=== PATIENT | female | born 1985 | race Caucasian/White ===

== ENCOUNTER 2023-05-30 14:40 | Outpatient (OUT) | payer OTHER, SELFPAY ==
[2023-05-30 16:23] LABS: TSH W/ REFLEX FT4 1.156 uIU/mL (0.358-3.740)
[2023-06-01 07:07] LABS: Progesterone 0.2 ng/mL (.)
[2023-06-01 10:08] LABS: FSH 4.9 mIU/mL (.); Luteinizing Hormone(LH) 6.3 mIU/mL (.)
[2023-06-06 13:11] LABS: Estrogens, Total 265 pg/mL (.)
[2023-06-08 09:07] LABS: Free Testosterone(Direct) 0.2 pg/mL (0.0-4.2); Testosterone 5 ng/dL (8-60)
== END 2023-05-30 14:41 | disposition home or self-care (01) ==
LOC: LAB 14:44
PROVIDERS: PCP Nurse Practitioner Family; Visit Provider Nurse Practitioner Family
DX: N94.6 Dysmenorrhea, unspecified (principal); Z86.39 Personal history of other endocrine, nutritional and metabolic disease; N92.6 Irregular menstruation, unspecified
CPT/HCPCS: 36415; 82672; 83001; 83002; 84144; 84402; 84403; 84443

== ENCOUNTER 2024-01-06 19:05 | Outpatient (REF) | payer OTHER, SELFPAY ==
--- OUTSIDE RECORDS SUMMARY | 2024-01-06 19:09 | XMS_ITS | CCD ---
Author Organization [facility] Care Team Providers Care Competitive Athlete Name Role Phone ZHOU REESE Attending Unavailable Thomas Mckeon III Primary Care Physician ZHOU REESE Attending Unavailable ZHOU REESE Admitting Unavailable Juan Yuan Admitting Unavailable Juan Yuan Attending Unavailable Juan Yuan Attending Unavailable Juan Yuan Admitting Unavailable ZHOU REESE Attending Unavailable ZHOU REESE Admitting Unavailable Thomas Mckeon Attending Unavailable Thomas Mckeon Admitting Unavailable Keyonna Keane Unavailable Medications Current Medications Medication Drug Class(es) Dates Sig (Normalized) Sig (Original) azelastine hydrochloride 0.137 mg/actuat metered dose nasal spray (1 source) Histamine-1 Receptor Antagonist Start: 05-26-2023 take 1 puff(s) nasal route twice daily Azelastine HCl 137 MCG/SPRAY 1 puff in each nostril Nasally Twice a day for 30 days May, Active ibuprofen 800 mg oral tablet (2 sources) Nonsteroidal Anti-inflammatory Drug Start: 10-06-2020 Ibuprofen Active 800 MG PO every 6 to 8 hours October 06, 2020 12:00am Start: 12-10-2019 End: 10-06-2020 Ibuprofen Discontinued 600 M G PO every 6 to 8 hours December 10, 2019 12:00am October 06, 2020 7:50am traMADol hydrochloride 50 mg oral tablet (2 sources) Opioid Agonist Start: 12-10-2019 End: 10-06-2020 Tramadol Active 50 MG PO every 6 to 8 hours 10 October 06, 2020 12:00am Completed/Discontinued Medications Medication Drug Class(es) Dates Sig (Normalized) Sig (Original) doxycycline hyclate 100 mg oral capsule (1 source) Tetracycline-cla ss Drug Start: 12-10-2019 End: 10-06-2020 take 1 capsule by mouth twice daily Doxycycline Hyclate (Vibramycin) 100 mg capsule Discontinued 100 MG PO Twice daily 14 December 10, 2019 12:00am October 06, 2020 7:50am Problems Problem Classification Problem Date Documented Da te Episodic/Chronic Menstrual disorders (4 sources) Menstrual cramp; Translations: [Dysmenorrhea, unspecified] Chronic Other nutritional; endocrine; and metabolic disorders (1 source) H/O: hypothyroidism; Translations: [Personal history of other endocrine, nutritional and metabolic disease] Episodic Other nutritional; endocrine; and metabolic disorders (1 source) Personal history of other endocrine, nutritional and metabolic disease Episodic Other upper respiratory disease (1 source) Nasal congestion Episodic Otitis media and related conditions (1 source) Unspecified Eustachian tube disorder, bilateral Episodic Results Test Name Value Interpretation Reference Range Facility PAP [id number] 10-30-2022 Cytology report Cyto stain Doc (Cvx/Vag) Note Invalid Interpretation Code [facility] Comment on above: Result Comment: TEST S RESULT FLAG UNITS REF RANGE LAB Clinician Provided Cytology Information Source.............[employer] No. of containers..01 ThinPrep Vial DIAGNOSIS: 01 NEGATIVE FOR INTRAEPITHELIAL LESION OR MALIGNANCY. FUNGAL ORGANISMS MORPHOLOGICALLY CONSISTENT WITH MARIANGEL SPECIES ARE PRESENT. Specimen adequacy: 01 Satisfactory for evaluation. No endocervical component is identified. Performed by: Javier Diaz Community Case Manager ([facility]) . 01 Note: Note 02 The Pap smear is a screening test designed to aid in the detection of premalignant and malignant conditions of the uterine cervix. It is not a diagnostic procedure and should not be used as the sole means of detecting cervical cancer. Both false-positive and false-negative reports do occur. Test Methodology: Note 02 This liquid based ThinPrep(R) pap test was screened with the use of an image guided system. FLAG LEGEND: L-Low Normal,H-High Normal,LL-Alert Low,HH-Alert High <-Panic Low,>-Panic High,A-Abnormal,AA-Critical Abnormal Performed at: 01 [facility] Cyto Histo [address] [place] [address] Jeromy Mcdowell MD, [address] [address] Rosaura Melo MD, Performed By: #### 3 [id number] ####[address] [place] [address] HPV 16+18+31+33+35+39+45 +51+52+56+58+59+66+6 8 DNA Probe+sig amp Ql (Cvx) Negative Invalid Interpretation Code Negative [facility] Comment on above: Result Comment: This nucleic acid amplification test detects fourteen high-risk HPV types (16,18,31,33,35,39,45,51,52,56,58,59,66,68) without differentiation. Performed at: [facility] [address] [place], [place] [id number] MD July Pinzon Performed at: =G [address] [id number] MD Kameron Kaplan Performed By: #### 3 [id number] ####[address] [place] [address] PAP [id number] 10-24-2022 Collection Technique BRUSH-SPATULA Normal F [facility] Comment on above: Performed By: #### 3 [id number] ####[address] [place] [address] Gynecological Body Site ENDOCERVIX Normal [facility] Comment on above: Performed By: #### 3 [id number] ####[facility] [place] [address] Physician Orderon 10-24-2022 Physician Order [id number] :127 Normal [facility] Coding Summary.on 05-31-2022 Coding Summary. CD:[id number] Gh0b Ww+PGhlYWQ+AJ9RHKVqA29nb JUudG8MD3iUAY4WPTQVHNWIF R7UGN9vaTC7QIqsU8TvrkDm RojkaLCbUH51WOs1MMA6dLly ENguyB2elMPiU6l0SsNfWI16 dK27ZEwaPAGvNyD0TiMvexkt bWFy M0zhHcAgjDGmFxs+PHRhYmxl IHdpZHRoPScxMDAlJyBzdHls EK4xMl3tZLIjUZMftXolaHXl OiBj o7gkVXHnKOhdYD7jbBqaI2Ww cLV5KLVxx5h0Hn83tPX+PHRk WQJ2eDbbWWuld030YpDpu5aa IDM3 rJIlIHcrBIC3U47yr0D6WFZz URPtHOU0zZW3mO5hqFworkzp S2UcwGQuWfN3JOZ8gKRavX1g bGln xlmoeM9vKzi+X27DQD3WISHB JQ5XMvg6D7CeNxdugPZ+PC90 DNWmBN06vTGayWYfa2vefWc7 JzEw EXGhZVI8fLraDCdea0BxVCQn R28vfXPdz5O4URSdxImfzILl SrWgfFK6nY5fTJgpyagav7gb dzsn Mqkdn9fnvx68dZ66M12cRCil NLSnVWD1LHHrDCIvvOeabu5o yK0wYu8+RUswb6hvb4csvAb2 IjIw WPNfzrJmmXmdNPB1e2OhHu45 B3EioSnmu2VuTpd4tf33nZYn q7B8qUY4GUinDGUzyO1lKSkr ZnQ6 OUBaAvQurZ84tWEcAYpzPy9v dVnmwYylSJ8eMLCtxjqmYAVp lT6xFBUdxPFszRhkLU7oUODk bjtm i849HlWwTIH3MBJplTYnQ4Js vT0zLkPsSBKvGZKhS0GmhQXl XQaxT121RRofQxC9HVZfjdTx Y2Fs SUJvfJtlUpO5w1K1Td2Xk1Ff xbzaYIC5ZOejGWOwZyB6GnFq QuP0Q5TkSru3BFQhuSepFK8x J3Bh NJNrwzzkqeheqKW3ZWHfLNFx rG68pNBqBVorMn8lj3Q2j146 BPEkTZXkcN78Ic0naXpnFNDi dCBU cQ0pykdxj6wetgbwIuQqZNDw JMj4RZo6IGDdiRdqPdXqNKU3 OgC6QXJ9fZTgmN4ytCjkriee dG9w Oyc+K84tsE3hCNO8CWI4fyhi FFTbdpSqAC28FO68B9QlIsmm dGFibGU+WGKoeiCurYzdBJ0a YmFj j7suu2NfULjzK1FaCDWxTXeq Uug3SSKwKPK0pWH0rD0eENKv QSylj1T7cRX6N3DhmiWeuj2a b2xs IUEmGVjgT54xaZApz2P3SUJr hCZ4IIWnwWuyGcFesK15Iyt+ DDDjpPajr8MnTtgmz6wfv9zo dGg9 DoBdDXHgeoNzsUdnQEU4t0Uu Qn48O97sWZpkYEHyVXWlYIWv NVMjrPklhi4ptA6uKz2+PGNv bCB3 lKH4lR9lUFEkDeN8EFuaM276 ZnBclCYlMbraz0img6vcxXl6 ScBlRXTtfbMlyNkuBRN7c5Tg Lz48 W80yHCvaYRHiUEAcJNNtGENk xZizmi8lmO0eIx4+RC5xm6xg xs97eY03uGB+NURlWUO9lYsc PSdw FOOepC4iDFpaIxS6OGCuYqCa uU21vKHyDIkhIl3rxBzjoBza VJ8zHLGtsfxvq147TgDeo0rp IDEw eMYkFRgcHGW4B44kr3I7ZEEm UZAhHCP5hBA3lT7upYvhoric bGVmdDsgdmVydGljYWwtYWxp Z246 IHRvcDsnPlBhdGllbnQgTmFt GWc7W3VzYqr7PMBgdAmbFZ3a rJJwNLfpXg8fkPeolGztYT7v NTBp hsagr220HmMcb9glSCYaoQMt UKtjOFO2P72bn8S1FTWrHWFx ANQ5fJA0aB1twUpyqavfuXUl dDsg ziCrlZmwGZezYDhgJ475BTAm hExbFcImbiShQIGbpXK5RX62 UF54hPTwo6Q4xGN2M1YmMZAo bmct khfqkBI1NDCnLSPufB26Cr3g hQcvNn5qBZJaQIP1XQGeiSRt X1OdwZ8kSbUrUTQvEMRaG3Pc eHQt STnhB211CXhkLhJ7NHXuseKr M3SzJHHuyBhwZyE0z8A3Oc9P D2V4AL28FC95wNJon5O1nIY7 J3Bh SZMjqjxiorwcuRS8DAVoYOTz aQ02Zk5tnGroJl9lZJBrQHE2 FYOkvONoP3YuzV1mUhWjCEFs MDAw E4QbrUJbWVtgN989HZfqNxU3 GIJirwEkT3CoDSIklHuhOfH7 h5O7Hz2USXd4BF39TY10qRCf c3R5 kIU2H6IwLKTluofepdospNS4 ZHSvOJUaiV66Vs8iyLsnMd0k FWYoIND6WMDxcMRxM2ZsyR3v OiAj QKWiEXZkB6YhjBDjCYinK755 ZZamFzT9ATBoysOdS4StRSMx fYfsIeZ0w9O2Iw5HERFwPP16 IFR5 nUH2KH22GX69O3CpGigmbRWs bGU+PHRhYmxlIHdpZHRoPScx KSJmXxXicLxcDM8mOr2iDUNi LWNv sNbkeQAiVfFia1jiKDKeHKij KP9egVcqG0OgwYK6XVJip7l6 Ft86G88zH0LsxBO+PGNvbCB3 aWR0 oT3sDxCcIuP8RGswH510TpMe oICeByfkb4lii6cgbLg8RjQ2 TIDibmKgsCsbESC5q7IdLr93 Y29s IHdpZHRoPSIxNSUiIHZhbGln ba7hnO2gPp6+WSHviMF8bAT5 cW8bOnIvPgW0UVkiT727UgXf cCIv Uqczi8ptu4smzBx0LfZeATDi xqLzvVsrIOX3s3KkVm69A2Rb lKgxe9HxGft7bu61jJZyx7H1 bGU9 Y6CsSTVdmzupuHHjtVqkIW7j AOFnjawkDDKhsL2xPWFxS0s2 BsOqJcK1OEuoR4SqivT7VFEk cHQg GVsrESE6L76li0M1ESOlQHFi WFX4jVS8lT6nlXegdtbvjNDm pCejbtKevVlwFYeiVVrpG807 IHRv cCuxATTiiJ7rGKJthGUpxSkt ZA2vVDJfwjemPx6OPKVCG4Gb CV1PS5mZOJkKNBs0V3CtOtb6 ZCBz uKvyOA0ioATtISerUw9ssPnj vSxiQV5pFGFcpfygKQFquD5n ECLfcONehYcuBD4tZTSadbvt b250 XqEsHHA1IEDqrXJnE4GspZ2k DbVrNMPwKDTxL9XkaEJcTHof Q286MBdwXtY3BOUfqjXhC0Ib LWFs kWazPdD3e9J2Wf4oIZ0vGZ3n QZf2XT55BG94oRCnt4C4dLC8 B9YrMXCtnquovawctLX1GGSb MDUw oK64nMQcPFfqGx4jg2J6x751 QXCeUECjvZ91Py4ypCxbGFXj hYTDwT9lryhbt0icumyeRqMx MDAw HCt9LUm2RILelGumEmIjMOD1 GlU4BPZ1gQYzvT5qvOispgpe mK3zXsi+UsrjOGSkxgR2K5Rc Pjx0 ZHYweXgeKI3dsARlVLigLh6n wQuggLdpAR7tRIHbhoafBQHt vY1fULMnwDPmdQdpWJ7hLSWx bjtm v017LbQtZUG2NZGpyREaV7Sk wN2eVpFsADAqEZVbB8JpsOXy LVaiL893KMcuWiO4ZOTpqaUf Y2Fs YXIjsBcmWqO9m9I0Nt9MDC4s lSZ3T3GvTll0ASEpgBqyES4w tKFqTDczUq4spToyjMiqMT2g NTBp algdCXUknU9jNRMygSNnlKxy ZZ2nLMVwxdziz118TtFiGLP9 IHMrbGVnL9YsnZ9hXcHuITXi MDAw M8YbeSXsWUyiA844MFgrOsV6 FKJgiyUiX6MtUOIyiLwjYwQ9 p4X5Po9OlRGpUHUmDB64QE51 ZD48 A2WrPhrtoFZnoGI+PHRhYmxl IHdpZHRoPScxMDAlJyBzdHls IO2iCc3wSBFnWWKazTjupFEd OiBj b7stPLFkKTggCE6bvOajL3Sp tBB7IOYfm8n0He13X57kA6Ir dXA+HVWrpMJ9fQQ0qD8iAyDe IiB2 XVdoK750HbAksGAuGtbst6yy z2rfyVo1TnHjBXEqvjLnrYdp DMK7f4SsHx52D45zGFdqZADp PSIy CLUcKLUyoEqwli6xdZ3aOt9+ LNGflRV0hDG4eJ7qCqCxQjM4 QMtkE454YyZcaOQdFksxQ39n Z3Jv dXA+QQEjOof4TCKmiFxfHP3i lUTuBAbsRr6dZIW4VuJbVwRq QJttW6XrAYPvxtbdvpjvhLY1 IDAu FXUvhF00Vv7olByyCl1pSGCz ZPO5LTGgoGMlZ4YfcW5jBbNj TRExTZOcQ5NghCFvWSvuJ781 IGxl AtY5VWRjbnNzI7UlVPRloZyz YsI0k7Y2Sz0AoDpzbEAqGJ1e PmMrDSm0V7IgOlw2QMUwrIrz ZT0n bNJoAYftOu8zgIbozSeiQF1g NHXpoiacg900VlYid6dyFPVu wMZdMKcgJQE9Q41nv1J9MAPe MDAw ELY3qTK3sH4ekZqimsgmxGQm kEopnrHwkCjrIUudEQoqA519 WKCpgTlxWpKASci0Y2IvYnx6 ZCBz vSfaQP3huCHaANqsSb1gcYzc mOgtFQ6kMKDokpbpu658ZgPf f3ffCXIvkQJaHHlcLWN9H81m b3I6 AICqNTLwQDF2iAF4zR1ddPzy bjogbGVmdDsgdmVydGljYWwt DCzsN021KXXooYklWp3XToj3 L3Rk Qeh6LZMydRihHK5nuDLsCVti Vv0kiDidyWnmRF4yXFSxdfos p318AqJmi9njABCbvIVyHRmj ZXM7 L16jb3R0JEXpFZJlDNZ6ySA0 gP5rlOrcdyfulKYwmIbknlGp gCohXNxmSAxlF041KKKuoQwb PlBh eWVyOjwvdGQ+IY13gt81B1Ai PlvdSoz5ITKvGRK3aRT7yH5y PBWaZNynq2N1rBB7D5AqjbHf ci1j b2xs (more content not included)... [facility] Physician Orderon 05-31-2022 Physician Order [id number]#1.00CD: 127 [facility] Physician Orderon 05-28-2022 Physician Order [id number]#1.00CD: 127 [facility] Consent for Treatmenton 05-15 Consent for Treatment [id number]#1.00CD: 127 [facility] Physician Orderon 05-27-2022 Physician Order [id number]#1.00CD :127 [facility] Coding Summary.on 04-24-2022 Coding Summary. CD:[id number] Gh0b Ww+PGhlYWQ+KJ6SPZMvW95xy FYkzS2CX8jVOD2YNCOTHOSHP U0OAQ9tlLV1ODyyJ4UmiaRo TmakzFDlBR06SZd7KIO4hMeq FPkblM6fuGMeE5j7IoAaCD28 mI25MZuwCQOmZpG9IzRytsma bWFy Q9duIaGcyLQtNus+PHRhYmxl IHdpZHRoPScxMDAlJyBzdHls KF7aLs3gGYOrCXDtsZlqlMCm OiBj x5nsEWNjBNwkOV9drQflH5Kp iBX2EGYoa1h3Jr07nHT+PHRk EBA9hNaiUKqzp019UyBbc9kq IDM3 uYYlNWovEST6O71kv8O1CWRp KOUbRIO9sRW7mV0vaJiznoza J6PyzKWgEoA8XMG5aZWlpR4c bGln xaiwjK5vFsv+V32MLM3XHZJW LF9NZen4X3VhZeoinMQ+PC90 SEDbBP29xZYmlRZwo0ieqDu2 JzEw CXCpWDF5lMroSDrir9ZzJEFd Z60zcIYhr4X6NZRreZaabPQq DxWckYA6xD8hUWnkxykfi9jc dzsn Kfnaj9ltoz44sE25B80fXZrl QPOwXZW2AJCoNTXmeTdrif0b bX1rKo1+TKcyq4uez4loaLl9 IjIw OIEnhpEqdEdiYFF7d0XrOp51 B0SimVetk1VtWyd3wg42cQNk g8K3lEN1KYzsKDDgaU4kEAry ZnQ6 UZHmTuCiuV00tLDxINrrUe0a xQhjjEtsOK5oELKhvlxkJCIt aK8rARTjtEYaaQbvCM5bZGSj bjtm y632YdGtYIC3ZFXyuSCzC7Oc dZ1fXiUbODCaHSWiM0RivOUn VYjzD664GConZvR5HATppyEi Y2Fs FEYtlYjnTeU3y7Z1Ev1Pc7Wo kxexLIT8ZWjlRKTaUtFwKaXo IwK2X6OaElu9YZLltZxhZD9s J3Bh OHWzxbmaboqntWJ0SXJgLWTp uH90qKLaBVvsMx1be4Y9o514 DUGbEQCygW82Pm4wkLsmRCQz dCBU zF8tynlzk3ahmvlbSpGoOZPv ESm3DNv8TUIgfCstQkGuELA6 NyX6HHD4nATgmV3plBposjab dG9w Oyc+F88ztK0pWBE7KJG8irun NPDcrgDiLL66TT55T8UvPsjb dGFibGU+NYEwlpYolFgkXN0i YmFj f5ibx7KiMCoxP7NqYBSxMJrt Rif7RKCbOZP3zMV7cC2uGIZl OFyms4N8iGH8W6YalvPkti7v b2xs PEJzHPobW92vbHKpl2I7TUZd mRE6DOOtvQacCmKxyE70Agk+ FVMthDxxs8SyJyspx8khk5ty dGg9 AxFuBWFguwFcuWucRVO8m5Xs Ac25Y72uMKftFXOfTLDsMMWx RWNooJxozp7laN9bVw0+PGNv bCB3 cTC7vK0oYRWmCmS1MNmkF669 BfMmjZWnNdqal9jyb0uwsSe0 VpSoGNTssuWglCygHER7q0Us Lz48 V81pWTvbRZTbDWOpHYKqMQPj uHxagf3yeO2sSn7+JU1eg5aj sv62sY99iRI+CONyNCP0nWmp PSdw POTlsL0mGOxuOgE7GRHsFxUh kC59mJEoNYwxUm2kmJcuxRvz VK0fQIGufgmwv041XjOpc8js IDEw zYKlXVzwQRE9E38vl5G7NQTb NQRyFBG4cZQ2rE8pvTrtkwpc bGVmdDsgdmVydGljYWwtYWxp Z246 IHRvcDsnPlBhdGllbnQgTmFt QKa6P5GqHom5PYHeoGjyWS1p eOLaFMbzGu7svTwclHblCA1v NTBp ecrwc233DkVan7woTGKkmPDi LJomCBH9V09yc8N4OLBdQGWo DUR2eFB1lL1nwGycjgjkcHIr dDsg zbVigZcfCWpmJFdiQ364SLRw vOotUnZlnsVwBXMtjZD1ST84 VG46dGQia7N2mWY0I9KoVPSf bmct idyrrER0HBIiGRFqpK81Pv6h fUrkDq3aEALfCCL8DLUdfJQy E4GoxM2pXrLzFNCiAVNhG9Mu eHQt SBveR334PZgzQvC8AYDyimRd R5WrEJXsrCnuZmA3a1P2Tr3C C7D1FA18BK04vJMky5I7rFW2 J3Bh ESVdtrkphpfnnDK4DMZbQACs lK86Nf6vcHebXm1ySVYzTDS6 AJOvuZJyK6UxgN2xPqWeBNHb MDAw F7LkmLIdFOobF546MYapStM3 PSShllWbE2NmGLDqtHpoKzL8 r6Z6Ha2FPWr0QZ89DZ08xHTp c3R5 eFZ1N2LzFSKvpokgqefliZF8 RQZgDNMfkI49Lk0qeRwqZm2m RSAuURT3RRZzoKGcO1XgfO1f OiAj PWUyBQZcW3GzjUMlAFmsN744 DRlfNaK0UQYhqiHqT9LjGBTy yIdyWiJ3q4I8Iv1OEPTuDN87 IFR5 nTG2ER45EZ93H2KwWnalfQPv bGU+PHRhYmxlIHdpZHRoPScx KKErHuXrsOzyOT6iHx7tGHXl LWNv vBwywKHqQtFmw0giMRUqAZzc QC5uyBldZ6JlhTD0YJGng1f4 Co54I27kY9JcpKN+PGNvbCB3 aWR0 rH6oYtXrZoS5IDqsV121HaTl fSFeIbjbl6sdj1qthJw6CuB8 FTDvhwWtjXpgIBG2k8BtJj69 Y29s IHdpZHRoPSIxNSUiIHZhbGln hm1bhX1vVi0+FVJbjHC9yDD9 uF7cDfIeDkL6SQzzT076XoBn cCIv Xlamz5jgb4nfyLu1KzIjVBIm fjBwnUnwVWV7o0IoGg31T7Na lPnrg2LwMed8rs74oUEac2I1 bGU9 P2HjDKZqeoateBWikQjmDU4g IYVfkhzqREOcbX2hRVVrL0o3 AlKcDvN6UDjkH4CxljF3ESPt cHQg LGygUMB0Z23bp1Y4TQTyQJIj GTB9oNI1mM4krNmmdavqjIFk mHwidwAcuEqvIXugCPtyD489 IHRv hYaeMPPqrZ0gCITgiEMpoUot MV2hUYVelirmLv9YJTBAK1Eq AM9WA4vCUXlQNQs9R1MzHes4 ZCBz bRavVM0zvGGdYBpgTh7izYtd qCclVZ4bIFOdgwxnAJFytY8t LAHhqIXutUiaJK6kKHJcxhby b250 FaChEEC3TWKioDCeI1JvpO5w EtDiPEEuGGAcK4JdiSTtKFvd A322SPxoXrA7KVTwzbWtX9Uc LWFs zSmwMuC4x4F9Ub7bVV9aTU6h MSi8CV57DN31gDAhf9G1lUR5 X5ZbQTNuvglzvwcatWM5NDVa MDUw uS39qKXqCBfxWo2cd9E7a010 VEJlSPArhH81Rr8kuMqyFUVr dJQZmJ2hlgatq7voofggAwJw MDAw FRc3VRl7SGNalFwxSvHrOSW9 YeO9ZRH8sISfmI6iiVyorifn sF3jImg+FckrNEAjowB4O1Df Pjx0 TLOfrGqhHE8uiFSlQEgjDo5a oSdxtHxxBJ0yGTGezdqoAFEe xQ4hRYEeeLCajThbCD7tZVJx bjtm c981FzLuEIJ1JSSiiCPjN4Of nT8mBcBhDVHgSNOxA7LsaFRo GOrxL616OEkrYlG2EUWnvnIq Y2Fs LLRhlSjqBpO5l7Y1Rq4NCP7v hKL4F3IdJul5LZLqvByaVF1o oEZxEGdeXi0woGnxcFqrGO4r NTBp msalDJPolL2iJVSmbNLgyWki PZ1bMWBrxdzuw681TjMxUZV2 RMMvrFMoP0TeaW6vLiWxJUYu MDAw O5JzdKPtOUksH032RJivLvF7 VSTmayCbS1OiCVCwoVsmUoF4 w1D3Lv0UhVTpOYOwUB86JP68 ZD48 F4UdJlvvuVEqdSU+PHRhYmxl IHdpZHRoPScxMDAlJyBzdHls BT6rUn8bYEBwSMRstHinqTNk OiBj t5grJUPpFXssEZ1htBcyF2Ya yGJ9YKCsk5q0Aj67T87qI1Ml dXA+ETAruMC0qXP2rR5bTaUp IiB2 JRijR680MrJueNUyDscwk2lg g5crgMf4KgXhSYUqzgVbsFiy ZAZ6p7NvJl81U15vMMfqUGNs PSIy ZEKfRONjpUvjkx0neW8fBr6+ MNVheEG3hCK1aF0xGtRiHgT8 JNefN422AfMiwPTeMntpN06a Z3Jv dXA+YDDbGec6WJEcxMocXV6j tYKmFScbUq8uUQF1EjUpJhZu YTkvQ2UnWYVcnnvvgncadWI0 IDAu CBWezZ49Cz7kiBqgCz6jDKFl VOK5EQZkuTTsF3TkfZ8rPjFm TSBhAHHpX8YetGSgLMtwX145 IGxl BbE5DIHvkdVeV8YhLRJkoQcg CdC3z8J3Wm1AwKedoGWmLH0j KgYbGUj9P4OaBdb7EMKgpLau ZT0n oFKbPRnzEa1dnIfmvHncLZ2c XCCibsupo521WdDws3yvFLVi zAAoCYdhFQV9T07jf5I2GLOl MDAw NTY4vXS7sX0upMqupxwzxGVb lIqrwrWruMybGXyqZHvmK233 KTFseBlpCmJTWdj0K3MuXlv2 ZCBz zKjdPL8wrAPmNJlfCs3niIpn cYfnMN9jMBZftkybk972NoQa t4dqWELgjMYqKVwdSJW1W28i b3I6 HCZsRFXfVPY5tGE5mD7fwWoi bjogbGVmdDsgdmVydGljYWwt DGgnI642JGKylUzgTz1CYky7 L3Rk Pot9UHGxhTugXI6rvJXjVJpz Wm3ldEpcsWmgBE4xZTBncmru t707DpLjs9gvOAEmiJUmJStj ZXM7 K31gq3Y3JMFmIZZlXMN1gVU8 tR9hpVpercpakHFyjOrmooKe yKptVPlzCZltY821XODcmTcl PlBh eWVyOjwvdGQ+PI87wn44O0Nx ZnytOlu1CRAhFOZ3hXQ5dQ3l RHMkKBdzr7T5aSE4E8GtbbPk ci1j b2xs (more content not included)... Normal [facility] BhCG Quanton 04-22-2022 HCG.beta subunit Qn 9235 m[IU]/mL High 1-3 [facility] Comment on above: Result Comment: GEST ATIONAL AGE HCG RANGE (mIU/mL) NON- <1-3 0.2-1 WEEKS 5-50 1-2 WEEKS 50-500 2-3 WEEKS 100-5,000 3-4 WEEKS 500-10,000 4-5 WEEKS 1,000-50,000 5-6 WEEKS 10,000-100,000 6-8 WEEKS 15,000-200,000 8-12 WEEKS 10,000-100,000 Performed By: #### 2 [id number] ####[facility] [id number] [place] [address] CHEMISTRYOrdered By: SYSTEM SYSTEM on 04-22-2022 HCG.beta subunit Qn 9235 m[IU]/mL High 1 - 3 mIU/mL [facility] Remisol Coding Summary.on 04-22-2022 Coding Summary. CD:[id number] Gh0b Ww+PGhlYWQ+XD9POVTuF92jf BPawR3TS8xDZX6MCOLBEYCQM B6MMB3ukZE2PBamB1HucjTo TdavxXHxHG76MJf0AZH8kGny TJstaE4bfXUgN0k4HnSqPP78 xV62JBfmVZQiZqF7GxUufftd bWFy J4qiYyTjcEQhCyf+PHRhYmxl IHdpZHRoPScxMDAlJyBzdHls HL9fIx1zAMJuNZXdrEpgdAHz OiBj h0obPRFfMEtgIH4agZuoU6Tn aGG7BYPjr3r2Oc22uSZ+PHRk AOO8lQzlRJsck334XnFiy9yr IDM3 fTRiFWsxTAL0X47ys0P5TCHv TIVdETG3mNQ7mE1hcIladikm W1XytZNfCdZ6LNB0aDAheE6r bGln cezeiI5bSqn+N10BLM8EFLVX DC8AIhr8D7GyHeistTX+PC90 CRHtDI27bJAadRSmk9prfCo1 JzEw JDArVED8gLjtBEnsp9TvESBv W92zdMHsl9C8GMDngRblfAUh PvLmwLW7oL7rFWypzhcxw5re dzsn Dbsqb7vlgc99lA42B56qHFif MJCoIMB4OLLfOZAcnSbwne2a zR8tIi3+WRpux2cyd6yapXu3 IjIw UJVsujKgmNhaEKA9n9MtUz99 R1YzkMqej6SeEux2tj98bWCw k7I9mQV5UYaxCZRpsO1aFAcl ZnQ6 CXNmXeTgeU19pGXnJXlyWb4y tSbjeKdeRX7zGUWyhcghIAQq iC0gBQUmcTRgdHvhAV5uMHUl bjtm n434GpPzNSM2YBDlmEIlK7Xp tE0cFhBlHZNgTOSyI0BmkUXq CUajT011RMzrPvL1IGIuoxRe Y2Fs JWXvrEydNtO2l1A4Tx9Lt2Lo niyuOYL3SYqhVYPtIfA1WgJt BkG6B7JcOoj6DRAtoLtiPX4b J3Bh FWJnmklargxtnEZ3ZHGeUFKb gU69gMKdYCnxKb3cg3W9v085 FQFnPSUrnM59Ly7pkUzjTQWy dCBU iN3sqgexj0wekqsxJsVsQTBr ZBu6AQe1XNNsmAntBvKpLRL2 BkU9JIX3zIVayS5efDaafgwl dG9w Oyc+Y05yyC3rSNK6GEC3yxlo VENgjbUnEF44TJ50S4JvJqam dGFibGU+KIDxbkKpzMfgXK3q YmFj n5wlo3LnBUjdY3FpCCXmMHxl Weu7TOBdDIM1fGF0aL3nZRPo AXwop7Z2oVE9I7IhwzNsmw9i b2xs FJNhIXkuQ87osMXnj9G9ZTTx oBE0CHBnuQjaZxCblG77Gps+ UWBnuWxaf0YePpsxr7sbn1vq dGg9 AoGtZJNkxmJdpOeiMXU5n4Dv Jp74P27kRNvfGOQoUKGiMQHo KQYfqDvyew7iqB2mHt2+PGNv bCB3 jAI4sH4cZTVtJiW2PDvhV436 AgLqzXJnSrlwa0qxg0rtvJo0 RbDhFIOsqkNzvJmiZCK8t6Oa Lz48 D81pNTutQSPxXNQyJLByOSAd xWsgts1laH9sQm6+GF6yg2ib rg53nH39hMH+HGJbKMV4fVnh PSdw RYPvqN9oDOlcRpN0NKDdCcFn qO65cFEgAFenPh8gsQvvrVbz OT1dXFVgczzxj319IpZnh0as IDEw tGOpXMupHQT2G57sb0U1JHBb SNNhANP4wZW4eU7feZznosci bGVmdDsgdmVydGljYWwtYWxp Z246 IHRvcDsnPlBhdGllbnQgTmFt TPq0E5JoZaf8ZIYfeAavWY6q lFFyLUloMu8lcQgseHdbEN6j NTBp jdewc929YxNgp2mzBDNrvBQi DUofWKR4H14ok8Z2BEMpCDSf TXX5kAY8vE2wkTroiyuwxVJp dDsg ozLudPuhCOzrUFyuT064YOOf fFjzKkFvxeCoEICdpKK3YP17 OB39tXHka6I2vXF8F9KiLJSd bmct noghdNR9CCAeVIDnaB66Wd1z gVxrNn4fRBXxRIG6YLZcyEVa Q7XrgX2pPtIpSKSzYPNdQ2Xm eHQt UMjgM478MMcnNxU1YWEbicXh G7BrNVBuqMzfXgV6b7A2Iu9F K8P0ZB33NA70iDCms9J0gCW9 J3Bh EHQplgsloybikQD8ENCoRBWv iI00Va0mzJjkOd9vDEWvQNL9 BFTmeOBkU1JcaC5mBfAdUAAz MDAw V4ZwnKYjSLibG411FRciBxB1 GIUtecGdY9FyPUSjiTujDqV4 r6Q4Sg6DKVq9VM58WN98gPZr c3R5 dOF7F3EyAPZqzarhxljhdMO9 VXRgYZCzpZ89Tj9weHlfDt5d IXJzNQI5WVPyzRIhT4ApjF2i OiAj UFAmCMTaX1LayYQzKBixC257 DBfkJzS7UVWcbgEzW3EaIJLc jWjfDfF1a7O9Ok7YDBDtYD99 IFR5 pKV2UY25AW51K1IeExfpaIGd bGU+PHRhYmxlIHdpZHRoPScx RJHcZoKdnUtxOI6rFs3cMQAs LWNv dIaxhLSfBqSmv7hjQUAdPZbb TW5dxWsmS0DfpYX2EFBmv1l9 Jm36T65kQ2HfhFQ+PGNvbCB3 aWR0 bH8dTjBqQpM4TOgpE781WeJd pRIcMmjcu2mbs9uhyTk2XsI7 FETenjWskEiuYWR2k5SyKo14 Y29s IHdpZHRoPSIxNSUiIHZhbGln wc6feJ5gFs0+ZRRomMF5hRV3 nQ9wGsVnDmZ2RCjyG911YwAv cCIv Isess0pkv8vysPz5YsTbQWFx kdMosUuwAJV0t3EyKj19B9Wn hShxy9BaVbh7me53iRXqs6C8 bGU9 C9AhFZAzbqxcsXYxoUjsFE9a SWXmmebzOEUbbU1hKDMcJ1p3 YmJjAdD3OFcuG1AkkcY0EKQi cHQg IRngAVX6K88gp6Q1WBGsXWUr NAB5bEY9yS3jcLwhronvyQOb kWnwarUajGfnSJwrAMdiF378 IHRv pKamGWYgaT4bJOXnpEAtxAsv CI3oMAKflokkWo2WUURCT2Vq BT1OV5hCWSrGCGu3T3YoFyo9 ZCBz sLlvVN5vxLXpBLdzOb3bqWpm mJcnQZ3eNKYzmwldFXLcwP7l IGGstROskNpvAZ9bQONnbmfq b250 IiHbEQQ1WKIozRJoG0CphL9r PvFaETSoXVOaY8JykNSaQKvy L887TSdzYkZ1KASmkqImL5Uy LWFs pKnaAdG1e2U3Yy0fJY6bGQ2d DTt3EZ33PG12pSIgd1Z4eXI8 N1FfZOMrtnmetrjfaHS8PHTw MDUw wA32pDGxLRwmOa9ga0M0w598 EUFvXPRucM85Zh5vvHlcXZCj aLOQaW0hiokxw6eheearRjBh MDAw YRp2ARq3XIWxfPbcIiHuSKS9 IuF6VRH4hGNbhW9vbPqmaedw jC9sDis+FdqePWKwaeK7E8Ks Pjx0 HVFwjAadNT6fyOVpGQvsKv2z lLshwOtoOL4kVTQqwspuXUJu iN9nNCBggYOvsZurIG9gAFQz bjtm x254BnDaQFO5GLFrfSHvL6Yu pS5sQgZuPFNnQGEuS7QugUJo EFsiR024IQarLrG4TSIudzDw Y2Fs MKNfkXdaIrY1d3P1Bb8YJV7q aOV4P3AjPfi8ODIvdAggYF0t eQAcAWnjYi2wuBqtpLbwHC1t NTBp cwjdUHAeyU2xJPFweYFgwDfz GY6hTSXlsshtz517FcAeENP4 AFBqpKBwW5PgmO8tAdOuOHKp MDAw O4TioHDdQQcbU812QAjzHmI9 UZOdmiJcC6VlFDCguVcwViQ0 z9D6Yx9BaVToSDIqPW67JF54 ZD48 O7AzAsozvCNvnYV+PHRhYmxl IHdpZHRoPScxMDAlJyBzdHls DR3xEe8hFAEiWHYoxFyfjTDj OiBj t6vaQZUoDEikXH7jrPhcX2Cn oZP8MOQoc7b5Yq31Z71wJ5Df dXA+WOMckPF2aAT4iU5lBuQz IiB2 BYdtY725DxYirDVzBrccc9yo e6ygwEz0TkLmECLqsjYewZtc QMY4o4GfKu40T20nSAceCJCh PSIy QIUcMEJpiKqqaw6zjG2xEr4+ KQGzcAZ1bXT4gH1hGwSlWwF3 YBcoO752RxCbyNHaKlvmI14m Z3Jv dXA+LQKyMdg6NKYveRfaAA1e wUYkCBkyRn4uFUO9GoDrJnKs TLujT7ErWQElznkdmkoqkAN4 IDAu YAWemR01Gn9hqZtfFu1kSLQi HYB6MLMifIPcZ2MxnZ5oLhLe XJUhLZQcU0SzeBLcWMtuR337 IGxl OfN2XSDwvaLxR2FlCSMhpTvy PzV9j2M1Vh7KcLirgRWzLV1d NxIlONj0D8PzQuc3EGOklAyp ZT0n yNKtIHzlXm3bbEwafHqpFE0j SKRcrqsmb043LpAoq2hrDGKd kXWiIJfpQMB7C69zt0W6BBZd MDAw EKG1eFU6pV1bhVfzbtkduTMk mOgvlfNodPzfIFhqRMurG094 DGPbpZclEcGKMrp3A5GpUqv6 ZCBz dEpnGN3eeFRgIGleKd3xcZki oLffTL4jXSNlysqxk043FsVw h5hqGAWbhYXbRXchJIR3B44x b3I6 FNXvHGCqIHN4xMJ9uS7ywWef bjogbGVmdDsgdmVydGljYWwt NKkvU574IRGhxXlvZe6EVzr5 L3Rk Ieo1BWWrxYxhWL8tiWQhPWjc Cb8rjPbbwEgxBO7oGVAirihn p804ZcKko3sgQEAyiRCpJCrx ZXM7 Y11et6P8SYLfNDJrSFR8rEW7 fQ5xlUqjiryvrDEtiDzmhqPn uWyxHVnlPCpsM990FKCaeFpj PlBh eWVyOjwvdGQ+IB37dw78I6Bj MpceTjw8ITSgPTY6oNW9gL5i EGWoSRdbw2J8oBM8B8GrlkXe ci1j b2xs (more content not included)... [facility] Consent for Treatmenton Consent for Treatment [id number]#1.00CD: 127 [facility] Physician Orderon 04-22-2022 Physician Order [id number]#1.00CD :127 [facility] BhCG Quanton 04-18-2022 HCG.beta subunit Qn 1421 m[IU]/mL High 1-3 [facility] Comment on above: Result Comment: GEST ATIONAL AGE HCG RANGE (mIU/mL) NON- <1-3 0.2-1 WEEKS 5-50 1-2 WEEKS 50-500 2-3 WEEKS 100-5,000 3-4 WEEKS 500-10,000 4-5 WEEKS 1,000-50,000 5-6 WEEKS 10,000-100,000 6-8 WEEKS 15,000-200,000 8-12 WEEKS 10,000-100,000 Performed By: #### 2 [id number] ####[facility] [id number] [place] [address] CHEMISTRYOrdered By: SYSTEM SYSTEM on 04-18-2022 25-hydroxyvitamin D3 [Mass/Vol] 29.2 ng/mL Low 30.0 - 100.0 ng/mL [facility] Remisol HCG.beta subunit Qn 1421 m[IU]/mL High 1 - 3 mIU/mL [facility] Remisol TSH Qn 2.98 m[IU]/L Normal 0.34 - 5.60 mcIU/mL [facility] Remisol Consent for Treatmenton Consent for Treatment [id number]#1.00CD: 127 Normal [facility] Physician Orderon 04-18-2022 Physician Order [id number]#1.00CD :127 Normal [facility] TSHon 04-18-2022 TSH Qn 2.98 m[IU]/L Normal 0.34-5.60 [facility] Comment on above: Performed By: #### 2 [id number] ####[facility] [id number] [place] [address] Vitamin D 25 Hydroxyon 04-18 25-hydroxyvitamin D3 [Mass/Vol] 29.2 ng/mL Low 30.0-100.0 [facility] Comment on above: Result Comment: Vit lantigua D deficiency has been defined as a level of serum 25-OH vitamin D less than 20 ng/mL (1,2) by the [place] [employer] and an Endocrine Society practice guideline. The Endocrine Society further defined vitamin D insufficiency as a level between 21 and 29 ng/mL (2). 1. IOM ([place] of [employer]). 2010. Dietary reference intakes for calcium and D. [place]: The National Academies Press. 2. Waylon MF, Teagan BEY, Dirk MARTINEZ, et al. Evaluation, treatment, and prevention of vitamin D deficiency: an Endocrine Society clinical practice guideline. JCEM. 2010; 96 (7):1911-30. Performed By: #### 2 [id number], [id number] ####[facility] [address] [place], [place] [id number] Coding Summary.on 01-21-2022 Coding Summary. CD:[id number] Gh0b Ww+PGhlYWQ+OY8OVTYzV62qo ZRsmT7LZ9hSKP0OXLDCIBARN Y8CEO3kdPH4LZjvU3SrcaRg EizpiOAyPM29JYc2CVI9vFtn HAjhjD4myGCwA7a7TlLdQQ24 tQ71LWhqIKPlDwF4BiIbbxed bWFy L3wdIbJoxBDyPxj+PHRhYmxl IHdpZHRoPScxMDAlJyBzdHls RL0oXt1tJXUjZHJhdRanlHSp OiBj a4czTPRnFRejUO5cgLbnY6Tw bWK3XOKck8f5Va40mLC+PHRk HEO3qLpyNJzqq578DaKlb8mu IDM3 qQGaPOqpXFC6B70zh3B8BNVb GVHuIOY9gTU6dW8mhBladbay D7SghPTmXjQ3VAM4rRYxiF1c bGln kzhvhW3dZrq+O96BDO5WWRUT SG7IUak7S1IkMdbyvWK+PC90 WXEjEK82sHJkdNVoy0nnwOx3 JzEw KHHuSYE2kHggDPowa2EgNNVf V80tbZMju6O3ZCTsfFnatHBn AdGreIM4zS8eBYabwvzze1ef dzsn Plaxo6ysnf86fS47U39zQBbf GFAdHOA3TVYoBBWmrUrzhp8m aS7jOq8+FSvzr1puk3tdsCy1 IjIw ZXCguwNreUcyOOJ7h8EzIu04 T1RigAyar6JjJxq2ly51kRUd z7H0lJX0TCdmISClxA7kWPlz ZnQ6 GLGiXwFpeP34dSTqJXziTn1k lOtztTtvLT1iBRHualkcLDSy lH0zMIWrjBJmzNlwKQ4wEABw bjtm o232OnQcELB5JJJcjVBhS2An vQ1mTxWrKCTaWWUlD3RybMCp CQyzP224QEkpPgB0CZGiomJv Y2Fs FCRsgDoaNaO1r7P5Sy1Wb2Ek epxtELW1CMvbOUMkIpMxNgOp GtP6M7SvSre2PNYjqLheIA7z J3Bh KVGdkkbipgpspPV5ZQWxZIDv tF20yBBpDHdnBs6uv7C3n193 UCOnXDHzaO46Zl5pbSbsLTFu dCBU lO1kpvxny9mnwgsqUnXxFHSm HDk1AYy1KKUzsSptMtIfJMD9 GjD7XSI9iJEqlR3rgWnfxnxr dG9w Oyc+U93xaJ8zVRW5FEF4wnat QSNynsRmGW41ZF81R1VmAzaf dGFibGU+JMNinsXteVyyUH6z YmFj k5wly1QfGHnnK5DrBPCpZVcn Nca3HKTtYZM4nII0nW0gIWOl UJykc9Z6dDW2Q8ZtmvWjmc2r b2xs UELjOSktY50okBBmy3Q0TBQs eBJ7PRLukXcfHwQcnD16Yvh+ EHKzzFavz6VqKzyxo5rsv4pi dGg9 TrXeEIKfclEjaIkpEIQ2j7Vo Uy94W78nDSllENSrDUWkWHVs EATteTaezm6diR7jPz5+PGNv bCB3 rVH4eP6zFFOqGgJ6FIxpA499 JpHzlVQqNpwpt8hax4vtpMm8 ZiWhRFTkxfVtgJgmOXN3i1Dp Lz48 W36zJItoJYLsGZKkPSUzJCTf vCwgsa7dyG2nVi3+BR3to3cj ny43wJ22oVQ+BBRkMDQ2oGqf PSdw IIJyeM8dKYcaXbN2QYFjKpBo bN25nOYdHApmBt3kqDbnnFva NL8lQHOfeefel415SoEij1vz IDEw sBPcTTriEUB0S78hx6S5BCCe ETLfXIN6jNG9hN8vbOlyjtes bGVmdDsgdmVydGljYWwtYWxp Z246 IHRvcDsnPlBhdGllbnQgTmFt YPk9U7IjCtn7IGOmeYdxYE8v lAFwWJpmJg0tyVksbTahWV5v NTBp yfcsd935PxCkg8gePTHeqCCb OOvlBFG1P74ye4T5KWEfERJx LIG8pWB2vI1vmMbtwrhkxHKn dDsg giSvuHzhEXdqRArbM534YKXi dGzyDiQqdoJsHXKnwMS6KD88 WO85sHMoi2W5qOS0H5NuIPQp bmct hkmulCJ6MRBpYKPnlE21Lr3x xRtmAk1qPHOfXIM7AFDeeHAi L7AmmQ9cCvQxQMXvDIOgE7Tg eHQt RDahX493OXnaQiF5PKJqosXv O0ZoPWQjzTneDnH2r6W7Sh5Q B6L0DS25IM93qVLup2S7iIO9 J3Bh MLTgddlbfpgxlVT2UNDyHGLf wO41Gh3txGubBd0iNPGiFKU1 TVXeaPYaS5VqkR2jYcNhXBCi MDAw Z6FbuWFbXYmzC939VWivJwA5 CMWqxaVtL5GsDAKjpHmzNfA1 l2G4Rt5HVVs3HJ28MS33fNEy c3R5 yII6C0MpHRUkbzxpybsgsDX4 JLEaUGJljX93Py0usJouRs8t VBMvWBC3SEZqfQQsM8CaeL9p OiAj OSCySILmN8RtgBRsOLtnO756 EYctEnC2DXEvtfGgU7WtPZOs bHtrKlO4n1S0Qw7DFROkUI13 IFR5 fMD7OU99RG48J1HeIabxpBXm bGU+PHRhYmxlIHdpZHRoPScx ZKBuDnBmcAotXH6mDm6gTDAn LWNv zRdzoTXkFrUtr6vrHVCjYJrq BZ9bqCmwC8JlhRW6HWMso0g9 Ih64S74bH6AcaAM+PGNvbCB3 aWR0 mY2fScCcAwP2HJtwB571IiLy rEDkIckym3rsh6kdfGq2RwT2 JRZhvfFvgShvLDG2a9FnXv82 Y29s IHdpZHRoPSIxNSUiIHZhbGln um6lwF7nUe0+KJVnqHT7pWO1 lE7wGzEdCtA2VWaoW949ArDz cCIv Fqzgo0tsl3xodNx9AgDnREMv hdXzqBaaUCC7u4LjKl44S0Tl jLaoz9WgBkx6nm67vPEog9G1 bGU9 C7ZmMGNfjguekNKpeMtsHU6r RTRlaebkHJInlE6fFGCdL7r4 DtXzYaS5LYrhD7VzqsN4FYNg cHQg TGrqBXE5K76xu2Y4XHLvOCZc TST7zWH6zC2flMkemcshdNWa tYnrfvGajFstPGgrQSybO794 IHRv rUdjXELufQ2zWJVkmRRceCos PA7kXFRqdnabRp8UPZYEK3Hd QC4OP4uECOfWEDh3S1QpPtc8 ZCBz bPznGT9xmPYrEQfhPt7lpOnn wOmoCV9pMZKpsatbHUWglD5c WIQojXJihUuoRS5bEPHcrqde b250 ZfEhCRA0OWBunCMaT0GixB5b UoEoXEAxLOBwB2EwoUPpYQoo J101JAnaZxK8HHRpjbJrP7Lm LWFs xHnkSjN9f0A6Kp0aHD2eEO9m JIo8UU48UY05xQJzb7G2fKM0 M0OgORQrpkzutcwikNU7RNNq MDUw iZ52lAMvYMxgMf1sn2D0z172 ICXdGOJibQ37Ha6qeZxySDEx qKZZgK8ehajnv4dwzmyjSiZl MDAw LZt0HGp3ARLavGqoSgUgBBI9 MpS6HOQ2tFKahS3tmBnakcqk oJ5fSyq+SwRoKNRkpxE3O9Ye Pjx0 RASceJluDI5onUPnUZzeGp1j mSiduCmeME0mYAKojpueVSCk bL5eKVNamNNugAsaJV8uVCRc bjtm x686GpVnPQI2DOAziIYhH4Wt dJ8zOrWqXHJfOANqH0YceSUo EVqhO503RZgzYuU5GTOtynMj Y2Fs ZYMbpAsaTvS5l8U9Fa3MNN6x bEG5E9CxMad0FDXmjWnzIZ4c qANwJYrjGv9yyNpneWxoED3q NTBp zzjpTQHlbT4tVFUvnCCacVsv RB2kRVYdhylqk635BdMbXEK8 KRSagKWmM8QyuZ7rDdCsVPQm MDAw X4VizUOjQOjbY341YGlvInO9 CCEpiqDdR7NaXQQfvBgcSnP7 b6R2Om6OkHNzSCDaTJ69CD64 ZD48 W6AvMyvquLNxuTA+PHRhYmxl IHdpZHRoPScxMDAlJyBzdHls SR7xYu1hRRPyBQHqfSiqpKZz OiBj g6hgVKJiQFsrCG6awSdgN9Uw kNH6EPUyy6n2Jn29S97aW3Zm dXA+DKHnyUJ8vNO7jP1qOaIt IiB2 SCmcR339HdEwwSCqMhohp2mu r5khlCq4BgOsRWOracKwaRjw XTP3g6ZwCl24K73cVMlzUZPt PSIy AIEdCEJrnSwlkk1dvW0pQw4+ SDFoeAT2cYU5jD4qVnPiDjU0 BCbhO034UuUlgAAhEthsP71v Z3Jv dXA+HCSqKfh4WPDjaKxeNO2x fUJhAXsjWt8aKBU8KxViGrPn WNknD7UySJYdrawbzejdpJP2 IDAu YZImaG08Zj9ohTgvOg7gTCBh RYH0YCUntNRfK7NruO6aSeKb YEGcBOCgO3MxtCSsUZhaO082 IGxl JzW2XZSzvwEaM3BeAGEilXaz IeU0m6T9Xn6EsZzkcHTjLV8k AvIdDPy8V4AeLsz8MEBslXgb ZT0n tFOpBXhbBl4qmHiohTgcWD6n IGSvgyjyz292KkBud1fkMEHf lZEbNGtdKOQ8Y79lx2T5UKRg MDAw MUS7gMZ1dN0cuEgcjxikxMCv gIbtunVduEbqMLkiTWsvC935 UAVxgZbfLpAYJsf0Q9NtRbb9 ZCBz rDswXL4jjWBxUYdqUt7zcMna bOhjPG2pPDRceegoe195LeGc f5kvLZUatFKyJAqbJSN3I34d b3I6 DPLqZJXsLQD6fHM4pN2ctTxf bjogbGVmdDsgdmVydGljYWwt RSutQ562ETBgqWacWn8BVpa4 L3Rk Dcg0LGRhqRjgSJ0qoKVtKVjy Wa5wuVmmxAxyUL1tNAEinzyt r757QnLoo8qvZXSteHCwZAhy ZXM7 X30dy1V7HKRqGEHaGGC1kPJ6 jR2stUzbdepsoZXekLxtssJl jHkiDUeuMXfiQ934QAKpgXka PlBh eWVyOjwvdGQ+ST52kj27A3Zf AkovGmw5YZEdKUV6yDM1iX7g KBFiZHumj6X8rHP9W3MhulTi ci1j b2xs (more content not included)... Normal [facility] CHEMISTRYOrdered By: SYSTEM SYSTEM on 01-17-2022 Cholesterol [Mass/Vol] 189 mg/dL Normal 120 - 200 mg/dL [facility] Cholesterol in HDL [Mass/Vol] 42 mg/dL Invalid Interpretation Code [facility] Cholesterol in LDL [Mass/Vol] 126 mg/dL Normal <=129mg/dL [facility] Cholesterol in VLDL [Mass/Vol] 17 mg/dL Normal 7 - 40 mg/dL [facility] Triglyceride [Mass/Vol] 84 mg/dL Normal <=149mg/dL [facility] Remisol Consent for Treatmenton Consent for Treatment [id number]: 127 Normal [facility] Lipid Panelon 01-17-2022 Cholesterol [Mass/Vol] 189 mg/dL Normal 120-200 [facility] Comment on above: Performed By: #### 2 [id number] ####[facility] [address] [place] [address] Cholesterol in HDL [Mass/Vol] 42 mg/dL Invalid Interpretation Code [facility] Comment on above: Result Comment: HDL > or equal to 60 mg/dL: Low cardiovascular risk HDL < 40 mg/dL : High cardiovascular risk Performed By: #### 2 [id number] ####[facility] [address] [place] [address] Cholesterol in LDL [Mass/Vol] 126 mg/dL Normal <=129 [facility] Comment on above: Performed By: #### 2 [id number] ####[facility] [address] [place] [address] Cholesterol in VLDL [Mass/Vol] 17 mg/dL Normal 7-40 [facility] Comment on above: Performed By: #### 2 [id number] ####[facility] [address] [place] [address] Triglyceride [Mass/Vol] 84 mg/dL Normal <=149 [facility] Comment on above: Performed By: #### 2 [id number] ####[facility] [address] [place] [address] Physician Orderon 01-17-2022 Physician Order [id number] :127 Normal [facility] CHEMISTRYOrdered By: SYSTEM SYSTEM on 07-30-2021 Progesterone [Mass/Vol] 5.10 ng/mL Invalid Interpretation Code [facility] Remisol Hemogram CBC Without Diffon 10-06-2020 Erythrocyte distribution width (RBC) [Ratio] 12.7 % Normal 11.9-15.3 [facility] Comment on above: Performed By: #### C BCNO #### [facility] [address] Hematocrit (Bld) [Volume fraction] 36.5 % Normal 34.0-46.4 [facility] Comment on above: Performed By: #### C BCNO #### [facility] [address] [place] [id number] [facility] Hemoglobin (Bld) [Mass/Vol] 12.6 g/dL Normal 11.8-15.4 [facility] Comment on above: Performed By: #### C BCNO #### [facility] [address] [place] [id number] [facility] MCH (RBC) [Entitic mass] 31.2 pg Normal 24.7-34.3 [facility] Comment on above: Performed By: #### C BCNO #### [address] MCV (RBC) [Entitic vol] 90.2 fL Normal 80-100 [facility] Comment on above: Performed By: #### C BCNO #### [address] Mean Corpuscular HGB Conc 34.6 g/dL Normal 32.0-35.0 [facility] Comment on above: Performed By: #### C BCNO #### [address] Platelet mean volume (Bld) [Entitic vol] 7.6 fL Normal 6.3-10.7 [facility] Comment on above: Result Comment: PERF ORMED BY: [place] [address] PATHOLOGIST WIRE CUTTER APRIL PIRES M.D. Performed By: #### C BCNO #### [address] Platelets (Bld) [#/Vol] 216 10*3/uL Normal 150-450 [facility] Comment on above: Performed By: #### C BCNO #### [address] RBC (Bld) [#/Vol] 4.04 10*6/uL Normal 3.60-5.00 [facility] Comment on above: Performed By: #### C BCNO #### [address] WBC (Bld) [#/Vol] 7.2 10*3/uL Normal 3.8-11.6 [facility] Comment on above: Performed By: #### C BCNO #### [address] Elijah 10-06-2020 L ---- Specimen: [id number] Received: 10/06/20 Status: ALFRED Abhi Num: [id number] Spec Type: Surgical Subm Dr: LYNDON Hammond Tissues: A Products of Conception - Spontaneous or Missed (PRODUCTS OF CONCEPT Procedures: HE Stain/3, Gross/Micro L4 Patient Age/Sex Location Account Attending Physician Nathalia Medina 35/F [place] [id number] LYNDON aHmmond SPEC NUM: [id number] RECD: 10/06/20 STATUS: ISABELLAOrtega MOE NUM: [id number] KATIA: 10/06/20- [facility] DR: LYNDON Hammond ENTERED: 10/06/[address] [facility] [address]: SPEC TYPE: Surgical DEPT: S ENTERED BY: [id number] RECV BY: [id number] ORDERED: HE Stain/3, Gross/Micro L4 ORDERED: HE Stain/3, Gross/Micro L4 Supplemental Report Addendum 1 Entered: 10/19/20 Cytogenetic study Result: Karyotype: 46,XX Interpretation: NORMAL FEMALE KARYOTYPE All metaphases exhibited a normal karyotype at the band level of resolution obtained. Since the result was obtained from cultured placental villi, it most likely represents the karyotype but does not exclude the possibility of maternal cell contamination. See separate report from [facility] Case #[facility] [id number]) for details. Addendum Signed (signature on file) Heri Solo MD 10/19/20 142 Specimen: [id number] Received: 10/06/20 Status: ALFRED Moe Num: [id number] Spec Type: Surgical Subm Dr: Mary Ford MD-NOMS Tissues: A Products of Conception - Spontaneous or Missed (PRODUCTS OF CONCEPT Procedures: HE Stain/3, Gross/Micro L4 Patient: Nathalia Medina [id number] (Continued) Specimen: [id number] Received: 10/06/20 (Continued) Signed (signature on file) April Pires MD 10/09/20 1615 Specimen: [id number] Received: 10/06/20 Status: ALFRED Moe Num: [id number] Spec Type: Surgical Subm Dr: Mary Ford MD-NOMS Tissues: A Products of Conception - Spontaneous or Missed (PRODUCTS OF CONCEPT Procedures: FAUSTINO Stain/3, Gross/Micro L4 Patient: Nathalia Medina [id number] (Continued) Specimen: [id number] Received: 10/06/20 (Continued) Pathological Diagnosis Products of conception, suction D C: - Early/immature chorionic villi, decidua, and endometrium showing gestational changes, consistent with products of conception Clinical Information Missed , suction D C Gross Description Received fresh labeled with the patient's name, number and products of conception with genetic testing in a collection device are multiple fragments of pink-purple hemorrhagic soft tissue, measuring in aggregate 6 x 6 x 0.6 cm. No body parts, definitive chorionic villi, or grapelike vesicles are identified. Supervisor Extruding Department sections are submitted to [facility] in [facility] for genetic testing. Supervisor Extruding Department sections are submitted in three cassettes labeled A1-A3. (JS/JS) Microscopic Description Three glass slides with H E stained material have been examined. The microscopic findings support the above pathologic diagnosis. [id number] Specimen: [id number] Received: 10/06/20 Status: ALFRED Moe Num: [id number] Spec Type: Surgical Subm Dr: Mary Ford MD-NOMS Tissues: A Products of Conception - Spontaneous or Missed (PRODUCTS OF CONCEPT Procedures: HE Stain/3, Gross/Micro L4 Patient: Nathalia Medina [id number] (Continued) Signed (signature on file) April Pires MD 10/09/20 1615 Normal [facility] Anticardiolipin IgG/M/A, Qno n 09-26-2020 Anticardiolipin Ab, IgA,Qn <9 Normal 0-11 [facility] Comment on above: Result Comment: Nega tive: <12 Indeterminate: 12 - 20 Low-Med Positive: >20 - 80 High Positive: >80 Performed at: - [facility] [id number] Bin Tripper Operator: Chas Junior PhD, Phone: [phone] Performed By: #### F ACV LEIDM, LUPANTCOAG, CARDIO GMA, MTHFRDNA #### [facility] , #### TSH3 #### [address] Anticardiolipin Ab, IgG,Qn <9 Normal 0-14 [facility] Comment on above: Result Comment: Nega tive: <15 Indeterminate: 15 - 20 Low-Med Positive: >20 - 80 High Positive: >80 Performed By: #### F ACV LEIDM, LUPANTCOAG, CARDIO GMA, MTHFRDNA #### [facility] , #### TSH3 #### [facility] [address] [place] [address] [facility] Anticardiolipin Ab, IgM,Qn 10 Normal 0-12 [facility] Comment on above: Result Comment: Nega tive: <13 Indeterminate: 13 - 20 Low-Med Positive: >20 - 80 High Positive: >80 Performed By: #### F ACV LEIDM, LUPANTCOAG, CARDIO GMA, MTHFRDNA #### [facility] , #### TSH3 #### [facility] [address] [place] [address] [facility] Factor V Leiden Mutationon 0 09-26-2020 Factor V Leiden Normal . [facility] Comment on above: Result Comment: Resu lt: Negative (no mutation found) Factor V Leiden is a specific mutation (R506Q) in the factor V gene that is associated with an increased risk of venous thrombosis. Factor V Leiden is more resistant to inactivation by activated protein C. As a result, factor V persists in the circulation leading to a mild hyper- coagulable state. The Leiden mutation accounts for 90% - 95% of APC resistance. Factor V Leiden has been reported in patients with deep vein thrombosis, pulmonary embolus, central retinal vein occlusion, cerebral sinus thrombosis and hepatic vein thrombosis. Other risk factors to be considered in the workup for venous thrombosis include the [id number] mutation in the factor II (prothrombin) gene, protein S and C deficiency, and antithrombin deficiencies. Anticardiolipin antibody and lupus anticoagulant analysis may be appropriate for certain patients, as well as homocysteine levels. Contact your local [facility] for information on how to order additional testing if desired. Genetic counselors are available for health care providers to discuss results at [phone] Methodology: DNA analysis of the Factor V gene was performed by allele- specific PCR. The diagnostic sensitivity and specificity is >99% for both. Molecular-based testing is highly accurate, but as in any laboratory test, diagnostic errors may occur. All test results must be combined with clinical information for the most accurate interpretation. This test was developed and its performance characteristics determined by [facility]. It has not been cleared or approved by the Food and Drug Administration. References: Willow Barrientos (1995). Clin Lab Med 16:169-186. Sharmin Livingston, PhD, FACMG Denise Vega, PhD, FACMG Rodolfo Hummel, PhD, FACMG Marbella Jean Baptiste, PhD, FACMG Noel Yusuf, PhD, FACMG Skinny Xioa PhD, FACMG Performed at: - [facility] [address] [facility], [facility], [place] [id number] Bin Tripper Operator: Ayan Salvador [facility], Phone: [phone] Performed By: #### F ACV LEIDM, LUPANTCOAG, CARDIO GMA, MTHFRDNA #### [facility] , #### TSH3 #### [address] Lupus Anticoagulant Compon 0 - Dilute Prothrombin Time (dPt) 35.2 Normal 0.0-55.0 [facility] Comment on above: Performed By: #### F ACV LEIDM, LUPANTCOAG, CARDIO GMA, MTHFRDNA #### [facility] , #### TSH3 #### [address] dPT Confirm Ratio 0.93 Normal 0.00-1.40 [facility] Comment on above: Performed By: #### F ACV LEIDM, LUPANTCOAG, CARDIO GMA, MTHFRDNA #### [facility] , #### TSH3 #### [facility] [address] [place] [address] DRVVT Lupus 33.3 Normal 0.0-47.0 [facility] Comment on above: Performed By: #### F ACV LEIDM, LUPANTCOAG, CARDIO GMA, MTHFRDNA #### [facility] , #### TSH3 #### [facility] [address] [place] [address] Interpretation Comment: Normal . [facility] Comment on above: Result Comment: No l upus anticoagulant was detected. Performed at: - [facility] [id number] Bin Tripper Operator: Stan Suárez MD, Phone: [phone] Performed By: #### F ACV LEIDM, LUPANTCOAG, CARDIO GMA, MTHFRDNA #### [facility] , #### TSH3 #### [facility] [address] PTT-LA 37.8 Normal 0.0-51.9 [facility] Comment on above: Performed By: #### F ACV LEIDM, LUPANTCOAG, CARDIO GMA, MTHFRDNA #### [facility] , #### TSH3 #### [facility] [address] Thrombin Time 16.0 Normal 0.0-23.0 [facility] Comment on above: Performed By: #### F ACV LEIDM, LUPANTCOAG, CARDIO GMA, MTHFRDNA #### [facility] , #### TSH3 #### [facility] [address] MTHFR DNA Analysison 021 MTHFR DNA Analysis Normal . [facility] Comment on above: Result Comment: Resu lt: C677T Single mutation (C677T) identified Interpretation: This individual is heterozygous for the MTHFR C677T variant (one copy). The MTHFR I0832C variant was not identified. This combination of results is not associated with an increased risk of hyperhomocysteinemia, venous thrombosis, coronary artery disease, or recurrent loss. However, hyperhomocysteinemia may also occur due to mutations in enzymes other than MTHFR that are involved in homocysteine metabolism, or arise due to acquired factors. In evaluation of vascular and obstetric risk, consider measuring fasting homocysteine. Other risk factors may be detected through systematic clinical laboratory analysis. This test was developed and its performance characteristics determined by [facility]. It has not been cleared or approved by the Food and Drug Administration. References: Razia LD, Tyrese Q. Am J Epidemiol 2000; 151(9):862-877. Tamia MM, Sandy RICHARD. Arch Pathol Lab Med 2007; 131(6):872-884. Rashaunt P et al. Adalgisa Ashlyn 1995; 10(1):111-113. Sevenkey SE et al. Ashlyn Med 2013; 15(2):153-156. Willis C et al. Obstet Gynecol 2011; 118(3):730-740. Obdulio B et al. Eur J Epidemiol 2013; 28(8):621-647. Sharmin Livingston, PhD, FACMG Denise Vega, PhD, FACMG W. Shayna Hummel, PhD, FACMG Marbella Jean Baptiste, PhD, FACMG Noel Yusuf, PhD, FACMG Skinny Xiao, PhD, FAC Performed at: [place] [id number] [place], [place] [id number] Bin Tripper Operator: Ayan Salvador [facility], Phone: [phone] PERFORMED BY: [place] [address] PATHOLOGIST WIRE CUTTER APRIL PIRES M.D. Performed By: #### F ACV LEIDM, LUPANTCOAG, CARDIO GMA, MTHFRDNA #### [facility] , #### TSH3 #### [address] Thyroid Stimulating Hormoneo n 09-26-2020 TSH Qn 1.04 m[IU]/L Normal 0.45-5.33 [facility] Comment on above: Result Comment: PERF ORMED BY: [place] [address] PATHOLOGIST WIRE CUTTER APRIL PIRES M.D. Performed By: #### F ACV LEIDM, LUPANTCOAG, CARDIO GMA, MTHFRDNA #### [facility] , #### TSH3 #### [place] [id number] [facility] Vital Signs Date Time Vital Sign Value Performing Clinician Facility 05-26-2023 08:00-0500 Body height 165.1 cm Keyonna Keane Other [facility] Other 05-26-2023 08:00-0500 Body mass index (BMI) [Ratio] 24.43 kg/m2 Keyonna Diya Other [facility] Other 05-26-2023 08:00-0500 Body weight 66.59 kg Keyonna Diya Other [facility] Other 05-26-2023 08:00-0500 Diastolic blood pressure 78 mm[Hg] Keyonna Diya Other [facility] Other 05-26-2023 08:00-0500 SaO2% (BldA) [Mass fraction] 99 % Keyonna Diya Other [facility] Other 05-26-2023 08:00-0500 Systolic blood pressure 116 mm[Hg] Keyonna Diya Other [facility] Other 05-27-2022 13:10-0500 Heart rate 89 /min Juan Yuan [facility] 05-27-2022 13:10-0500 SaO2% (BldA) [Mass fraction] 100 % Juan Yuan [facility] 05-27-2022 13:10-0500 Body temperature 97.88 [degF] Juan Kwabena [facility] 05-27-2022 13:09-0500 Diastolic blood pressure 91 mm[Hg] Juan Kwabena [facility] 05-27-2022 13:09-0500 Mean blood pressure 110 mm[Hg] Juan Kwabena [facility] 05-27-2022 13:09-0500 Systolic blood pressure 149 mm[Hg] Juan Yuan [facility] Encounters Encounter Date Encounter Type Care Provider Facility Start: 09-30-2023 End: 09-30-2023 ambulatory [facility] Work Phone: Start: 09-30-2023 End: 09-30-2023 Patient encounter procedure [facility] Physician [facility] Work Phone: Start: 05-26-2023 End: 05-26-2023 ambulatory Keyonna Keane Other [facility] Other Start: 05-26-2023 Office outpatient ne w 30 minutes Keoynna Keane [facility] Start: 10-24-2022 End: 10-25-2022 ambulatory Juan Yuan Facility:[facility] Start: 05-27-2022 End: 05-28-2022 ambulatory Juan Yuan Facility:[facility] Start: 05-27-2022 End: 05-27-2022 Patient encounter procedure Juan Stubbs Kwabena [facility] Start: 04-22-2022 End: 04-23-2022 ambulatory ZHOU REESE Facility:[facility] Start: 04-22-2022 End: 04-22-2022 Patient encounter procedure ZHOU REESE [facility] Start: 04-18-2022 End: 04-19-2022 ambulatory ZHOU REESE Facility:[facility] Start: 04-18-2022 End: 04-18-2022 Patient encounter procedure ZHOU ORNELASI [facility] Start: 01-17-2022 End: 01-18-2022 ambulatory Thomas Mckeon Facility:[facility] Start: 01-17-2022 End: 01-17-2022 Patient encounter procedure Thomas Mckeon III [facility] Start: 07-30-2021 End: 07-30-2021 Patient encounter procedure ZHOU REESE [facility] Start: 01-30-2021 End: 01-30-2021 ambulatory ZHOU REESE [facility] Immunizations Immunization Date Immunization Notes Care Provider Fa keanu 06-16-2020 COVID-19 mRNA, Comir yamile (Pfizer) [facility] 05-26-2020 COVID-19 mRNA, Comir yamile (Pfizer) [facility] Payers Date Payer Category Payer Private Health Insurance [id number] 1985 Unknown [id number] 1985 Unknown [id number] 2.16.8 [id number] 1985 Unknown [id number] 2.16.8 [id number] 1985 Unknown [id number] 2.16.8 [id number] 1985 Unknown [id number] 2.16.8 [id number] 1985 Unknown [id number] 2.16.8 [id number] Self-pay Self Pay [id number] Unknown O [id number] Social History Date Type Detail Facility Tobacco smoking status [facility] Sex Assigned At Female [facility] Tobacco smoking status No Smokin g Status Entered [facility] Start: 10[facility]06-[facility] Start: 1985 Sex Assigned At Female [facility] Evaluation note 05-26-2023 Note Date & Type Note Facility 05-26-2023 Evaluation note Encounter Date Diagnosis Assessment Notes May, History of hypothyroidism (ICD-10 - Z86.39) Notes that she did take thyroid medication prior to her misscarriage. Will recheck labs. May, Menstrual cramps (ICD-10 - N94.6) Discussed will test labs and will call with any further recommendation. Pt verbalizes understanding. May, Irregular menstruation (ICD-10 - N92.6) May, Dysfunction of both eustachian tubes (ICD-10 - H69.93) Informed pt that there are no signs of a bacterial infection on exam today. Will not treat with an antibiotic at this time. Use Astelin nasal spray, 1 sprays in each nostril twice daily. Takes 5-7 days of consistent use to see full benefits of medication. Encouraged to take CLaratin- or OTC anthistamine for allergies.. May use OTC Tylenol/Motrin as directed for any discomfort. If no improvement of symptoms by 7-10 days, patient should follow up. Patient should follow up sooner if symptoms worsen. Patient verbalizes understanding and agreement with treatment plan. May, Chronic nasal congestion (ICD-10 - R09.81) Take Claratin daily as well as the Astelin spray. [facility] Other Evaluation + Plan note Note Date & Type Note Facility Evaluation + Plan note No data available for this section [facility] Evaluation note Note Date & Type Note Facility Evaluation note No assessment information availa [facility] Work Phone: History general Narrative - Reported Note Date & Type Note Facility History general Narrative - Reported Type Surgical History D&C x4 [facility] Other Hospital Discharge instructions Note Date & Type Note Facility Hospital Discharge instructions No data available for this section [facility] Progress note Note Date & Type Note Facility Progress note No data available for this section [facility] Summary Purpose Family History Relationship Condition Age at Onset Recorded Date/T candi father Diabetes mellitus Unknown Hypertension Unknown Not Specified Hyperlipidemia Unknown Advance Directives Advance Directive Response Recorded Date/ Time Advance Directives No December 07, 2019 5:23pm Chief Complaint and Reason for Visit Chief Complaint UA Additional Source Comments INFORMATION SOURCE (unrecogn ized section and content) DATE CREATED AUTHOR 02/04/2021 [facility] DATE CREATED AUTHOR AUTHOR'S ORGANIZ ATION 06/04/2021 [facility] DATE CREATED AUTHOR AUTHOR'S ORGANIZ ATION 10/31/2022 [facility] Patient Care team informatio n (unrecognized section and content) Team Status: Active Member Role Status Dates Arianna Atkins DO Primary Care Provider Active Team Status: Inactive Member Role Status Dates Arianna Atkins DO Primary Care Provider Active Start: September 30, 2023 End: September 30, 2023 Keyonna Keane APRN FLOSSER-C Attending Provider Act bryan Start: September 30, 2023 End: September 30, 2023 REASON FOR VISIT (unrecogniz ed section and content) establish Goals (unrecognized section and content) Goals may be documented in a n alternate section FOR RECORDS PERTAINING TO PATIENTS WHO ARE OR HAVE BEEN ENROLLED IN A CHEMICAL DEPENDENCY/SUBSTANCEABUSE PROGRAM, SOME INFORMATION MAY BE OMITTED. This clinical summary was aggregated from multiple sources. Caution should be exercised in using it in the provision of clinical care. This summary normalizes information from multiple sources, and as a consequence, information in this document may materially change the coding, format and clinical context of patient data. In addition, data may be omitted in some cases. CLINICAL DECISIONS SHOULD BE BASED ON THE PRIMARY CLINICAL RECORDS. [employer] provides no warranty or guarantee of the accuracy or completeness of information in this document.
== END 2024-01-06 19:06 | disposition home or self-care (01) ==
LOC: LAB 19:05
PROVIDERS: PCP Nurse Practitioner Family; Visit Provider Obstetrics & Gynecology
DX: Z01.419 Encounter for gynecological examination (general) (routine) without abnormal findings (principal)
CPT/HCPCS: 87624; 88175

== ENCOUNTER 2025-02-07 19:22 | Outpatient (REF) | payer BC, SELFPAY ==
--- OUTSIDE RECORDS SUMMARY | 2025-01-31 16:00 | XMS_ITS | Encounter Summary ---
Author Organization [facility] Address [address] [place] [address] Care Team Providers Care Minute Clerk Name Role Phone Thomas Mckeon DO Primary Care Provider [phone] Reason for Visit * ReasonCommentsSkin Check Encounter Details DateTypeDepartmentCare Team (Latest Contact Info)Mbdqoeqgghl59/20/2025 4:00 PM EDTOffice Visit [facility] [address] [place] [address] Milla Covarrubias PA [address] [place] [address] Capillary angioma (Primary Dx); Seborrheic keratosis; Melanocytic nevus of skin of both upper extremities; Lentigo simplex; Rhytides Social History Tobacco UseTypesPacks/DayYears UsedDateSmoking Tobacco: NeverSmokeless Tobacco: NeverAlcohol UseStandard Drinks/WeekCommentsYes0 (1 standard drink = 0.6 oz pure alcohol)Varies 0-3 glasses of wine or beer per week/month; caffeine intake: occasional, chocolateCommentsUnknownSex and Gender InformationValueDate RecordedSex Assigned at BirthNot on fileLegal MsyXzojng03/15/2023 7:31 PM EDT Gender IdentityNot on fileSexual OrientationNot on filedocumented as of this encounter Progress Notes * LYN Epstein - 01/31/2025 4:00 PM EDT Skin Check Location: Patient requests a full body skin examination Dermatologic history: no history of skin cancer, no history of atypical moles, no family history ofmelanoma New patient All pertinent medical history, medications, and allergies were reviewed. General Exam: alert, oriented to person, place, and time, normal affect, well appearing Unaccompanied Areas not examined despite medical recommendation: Scalp, Examined , exam limited by hair Right leg Examined Head, Face Examined Left leg Examined Neck Examined Right foot Examined Chest Examined Left foot Examined Back Examined Buttocks Examined Patient kept underwear on Abdomen Examined Digits,nails: Examined Right arm Examined Patient wearing nail tanzanian, Denies dark streaks on toenails Left arm Examined Lymphatics: Not examined Hands Examined Skin Exam 1. SEBORRHEIC KERATOSIS Right Breast Stuck on verrucous, plascencia-brown papules and plaques. Patient was counseled regarding these benign growths. Removal is normally not necessary, but they may be removed if they are symptomatic or for cosmetic reasons. 2. MELANOCYTIC NEVUS OF SKIN OF BOTH UPPER EXTREMITIES Right Shoulder and Left Forearm Scattered benign appearing, regular brown to light brown melanocytic papules and macules with similar morphology Counseled regarding these benign growths. Rarely, a nevus can develop into malignant melanoma, so any changing nevi should be promptly re-evaluated. 3. LENTIGO SIMPLEX Generalized Scattered plascencia macules in sun-exposed areas. The patient was informed that lentigines are benign pigmented lesions that occur on sun-exposed andsun-damaged skin. No treatment is necessary. Recommended regular use of broad spectrum sunscreen SPF 30 or higher 4. CAPILLARY ANGIOMA Trunk Scattered keyes-red papule(s). The patient was informed that angiomas are benign growths on the the skin. No treatment is necessary. 5. RHYTIDES Head - Anterior (Face) Start Tretinoin 0.025 % cream, apply pea size amount to the face, once daily at evening/night time. - tretinoin (Retin-A) 0.025 % cream - Head - Anterior (Face) - Apply pea size amount to the face, once daily at evening/night time, 30 day supply Next Visit: 1 year, skin check documented in this encounter Plan of Treatment DateTypeDepartmentCare Team (Latest Contact Info)Fizywvuccnp10/03/2026 2:00 PM ESTProcedure Visit [facility] [address] [place] [phone] Justice Milan DO [address] [place] [address] documented as of this encounter Visit Diagnoses Diagnosis Capillary angioma- Primary Nevus, non-neoplastic Seborrheic keratosis Melanocytic nevus of skin of both upper extremities Lentigo simplex Other dyschromia Rhytides documented in this encounter Care Teams Team MemberRelationshipSpecialtyStart DateEnd Date Thomas [place] [id number] PCP - GeneralFamily Medicine08/20/24documented as of this encounter
--- OUTSIDE RECORDS SUMMARY | 2025-02-07 15:00 | XMS_ITS | Encounter Summary ---
Author Organization [facility] Address [address] [place] [address] Care Team Providers Care Crosscutter Rolled Glass Name Role Phone Thomas Mckeon DO Primary Care Provider [phone] Reason for Visit * ReasonCommentsWell Women Visit Encounter Details DateTypeDepartmentCare Team (Latest Contact Info)Frgkjjhvirq72/27/2025 3:00 PM EDTOffice Visit [facility] [address] [facility] [address] [place] [address] Justice Milan DO [address] [place] [address] Well woman exam with routine gynecological exam; Encounter for screening mammogram for malignant neoplasm of breast Social History Tobacco UseTypesPacks/DayYears UsedDateSmoking Tobacco: NeverSmokeless Tobacco: NeverAlcohol UseStandard Drinks/WeekCommentsYes0 (1 standard drink = 0.6 oz pure alcohol)Varies 0-3 glasses of wine or beer per week/month; caffeine intake: occasional, chocolateCommentsUnknownSex and Gender InformationValueDate RecordedSex Assigned at BirthNot on fileLegal AqlTgukwu55/15/2023 7:31 PM EDT Gender IdentityNot on fileSexual OrientationNot on filedocumented as of this encounter Last Filed Vital Signs Vital SignReadingTime TakenCommentsBlood Dhtheybc240/8210/ 3:09 PM EDT Pulse--Temperature--Respiratory Rate--Oxygen Saturation--Inhaled Oxygen Concentration--Bakjcr43.7 kg (140 lb 8 oz)02/07/2025 3:09 PM EDTHeight--Body Mass Index23.38008/26/2024 3:25 PM EDTdocumented in this encounter Plan of Treatment DateTypeDepartmentCare Team (Latest Contact Info)Rnlwccyzapn45/03/2026 2:00 PM ESTProcedure Visit [facility] [address] [place] [address] Justice Milan DO [address] [facility] [facility] [place] [address] NameTypePriorityAssociated DiagnosesOrder SchedulePap SmearPathology and CytologyRoutine Well woman exam with routine gynecological exam Ordered: 02/07/2025HPV DNA probe, amplifiedMicrobiologyRoutine Well woman exam with routine gynecological exam Ordered: 02/07/2025ilateral screening mammogramImagingRoutine Encounter for screening mammogram for malignant neoplasm of breast Expected: 02/07/2025 (Approximate), Expires: 04/09/2026documented as of this encounter Visit Diagnoses Diagnosis Well woman exam with routine gynecological exam Routine gynecological examination Encounter for screening mammogram for malignant neoplasm of breast documented in this encounter Care Teams Team MemberRelationshipSpecialtyStart DateEnd Date Thomas Mckeon [place] [address] PCP - GeneralFamily Medicine08/20/24documented as of this encounter
--- OUTSIDE RECORDS SUMMARY | 2025-02-07 19:28 | XMS_ITS | Encounter Summary ---
Author Organization [facility] Address [address] [place] [address] Care Team Providers Care Cnc Mill And Lathe Operator Name Role Phone Mike Thomas WEAVER Primary Care Provider [phone] Encounter Details DateTypeDepartmentCare Team (Latest Contact Info)Jmaosxaflay69/13/2025Travel Social History Tobacco UseTypesPacks/DayYears UsedDateSmoking Tobacco: NeverSmokeless Tobacco: NeverAlcohol UseStandard Drinks/WeekCommentsYes0 (1 standard drink = 0.6 oz pure alcohol)Varies 0-3 glasses of wine or beer per week/month; caffeine intake: occasional, chocolateCommentsUnknownSex and Gender InformationValueDate RecordedSex Assigned at BirthNot on fileLegal KgqMhwpzg03/15/2023 7:31 PM EDT Gender IdentityNot on fileSexual OrientationNot on filedocumented as of this encounter Plan of Treatment DateTypeDepartmentCare Team (Latest Contact Info)Tfphqgkseia89/03/2026 2:00 PM ESTProcedure Visit [facility] [address] [place] [address] Justice Milan DO [address] [facility] [place] [address] documented as of this encounter Visit Diagnoses Not on filedocumented in this encounter Care Teams Team MemberRelationshipSpecialtyStart DateEnd Date Thomas Mckeon DO [address] [place] [address] PCP - GeneralFamily Medicine08/20/24documented as of this encounter
--- OUTSIDE RECORDS SUMMARY | 2025-02-07 19:28 | XMS_ITS | Encounter Summary ---
Author Organization [facility] Address [address] [place] [address] Care Team Providers Care Voltmeter Operator Name Role Phone Mike Thomas WEAVER Primary Care Provider [phone] Encounter Details DateTypeDepartmentCare Team (Latest Contact Info)Jarctvjvkcy66/20/2025Travel Social History Tobacco UseTypesPacks/DayYears UsedDateSmoking Tobacco: NeverSmokeless Tobacco: NeverAlcohol UseStandard Drinks/WeekCommentsYes0 (1 standard drink = 0.6 oz pure alcohol)Varies 0-3 glasses of wine or beer per week/month; caffeine intake: occasional, chocolateCommentsUnknownSex and Gender InformationValueDate RecordedSex Assigned at BirthNot on fileLegal AchZkyenz70/15/2023 7:31 PM EDT Gender IdentityNot on fileSexual OrientationNot on filedocumented as of this encounter Plan of Treatment DateTypeDepartmentCare Team (Latest Contact Info)Eublhegibuo43/03/2026 2:00 PM ESTProcedure Visit [facility] [address] [place] [address] Justice Milan DO [address] [facility] [place] [address] documented as of this encounter Visit Diagnoses Not on filedocumented in this encounter Care Teams Team MemberRelationshipSpecialtyStart DateEnd Date Thomas Mckeon DO [address] [place] [address] PCP - GeneralFamily Medicine08/20/24documented as of this encounter
--- OUTSIDE RECORDS SUMMARY | 2025-02-07 19:28 | XMS_ITS | Encounter Summary ---
Author Organization [facility] Address [address] [place] [address] Care Team Providers Care Systems Support Officer Name Role Phone Thomas Mckeon DO Primary Care Provider [phone] Encounter Details DateTypeDepartmentCare Team (Latest Contact Info)Zrgtobeythx41/27/2025amboo flowsheet [facility] [address] [place] [address] Justice Milan DO [facility] [address], [facility] Social History Tobacco UseTypesPacks/DayYears UsedDateSmoking Tobacco: NeverSmokeless Tobacco: NeverAlcohol UseStandard Drinks/WeekCommentsYes0 (1 standard drink = 0.6 oz pure alcohol)Varies 0-3 glasses of wine or beer per week/month; caffeine intake: occasional, chocolateCommentsUnknownSex and Gender InformationValueDate RecordedSex Assigned at BirthNot on fileLegal NymJtsvhs01/15/2023 7:31 PM EDT Gender IdentityNot on fileSexual OrientationNot on filedocumented as of this encounter Plan of Treatment DateTypeDepartjohn d. dingell veterans affairs medical centerCare Team (Latest Contact Info)Petvgulznsa54/03/2026 2:00 PM ESTProcedure Visit [facility] [address] [place] [address] Justice Milan DO [address], [facility] documented as of this encounter Visit Diagnoses Not on filedocumented in this encounter Care Teams Team MemberRelationshipSpecialtyStart DateEnd Date Thomas Mckeon DO [address] [phone] PCP - GeneralFamily Medicine08/20/24documented as of this encounter
--- OUTSIDE RECORDS SUMMARY | 2025-02-07 19:28 | XMS_ITS | Clinical Summary ---
Author Organization [facility] Address [address] [place] [address] Care Team Providers Care Service Dispatcher Name Role Phone Thomas Mckeon DO Primary Care Provider [phone] Allergies No known active allergies Medications MedicationSigDispense QuantityRefillsLast FilledStart DateEnd DateStatus Multiple Vitamin (Multi Vitamin) tablet 1 (one) time each day at the same timeActive Azelastine HCl 137 MCG/SPRAY solution 4Active tretinoin (Retin-A) 0.025 % cream Indications:RhytidesApply pea size amount to the face, once daily at evening/night time, 30 day supply 45 g 1115Active Active Problems No known active problems Resolved Problems ProblemNoted DateDiagnosed DateResolved PervIvrhxgyrlmro67 Menorrhagia with irregular cycle Encounters DateTypeDepartmentCare YocfZivgmeqongc99/27/2025 3:00 PM EDTOffice Visit DANIELA [place] [facility] [address] [place] [address] Justice Milan DO Well woman exam with routine gynecological exam; Encounter for screening mammogram for malignant neoplasm of qscxxd2102/07/2025 Bamboo flowsheet [facility] [address] [place] [address] Justice Milan DO 01/31/2025 4:00 PM EDTOffice Visit [facility] [address] [place] [address] Milla Covarrubias PA Capillary angioma (Primary Dx); Seborrheic keratosis; Melanocytic nevus of skin of both upper extremities; Lentigo simplex; Onisdwzk97/20/2025amboo flowsheet [facility] [address] [place] [address] Milla Covarrubias PA 01/31/20257494Jtgntn07/13/2025Travelfrom Last 3 Months Immunizations ImmunizationAdministration DatesNext DueInfluenza, injectable, MDCK, preservative free, slfqvtfuihev35/11/2023,01/10/2022,01/24/2019,01/21/2018 Influenza, injectable, amgvfzzjqhmo32/01/2018Influenza, injectable, quadrivalent, preservative free01/02/2021,12/31/2019Influenza, seasonal, injectable, preservative free01/06/20248974MZVI-YXK-9 (COVID-19) vaccine, mRNA, spike protein, LNP, bivalent, preservative free, 30 mcg/0.3 mLdose, carli-sucrose cfvuegypans56/29/1675Yvmc64/10/2022 Family History Medical HistoryRelationNameCommentsCancerFatherMike frederickDiabetesFatherMike frederickHypertensionFatherMike frederickClotting disorderMaternal Grandfather Anxiety disorderMaternal GrandmotherAllergiesMotherSue frederickSeasonalAnxiety disorderMotherSue frederickAsthmaMotherSue frederickHypertensionMotherSue frederickDiabetesPaternal GrandfatherMike frederickDiabetesPaternal Grandmother Lety FreflaquitaNo Known ProblemsSisterRelationNameStatusCommentsFatherMike frederickAliveMaternal GrandfatherAliveMaternal GrandmotherDeceasedMotherSue frederickAlivePaternal GrandfatherMike frederickDeceasedPaternal Grandmother Lety FrederickDeceasedSister Social History Tobacco UseTypesPacks/DayYears UsedDateSmoking Tobacco: NeverSmokeless Tobacco: Never Tobacco Cessation:Counseling Given: Not Answered Alcohol UseStandard Drinks/WeekCommentsYes0 (1 standard drink = 0.6 oz pure alcohol)Varies 0-3 glasses of wine or beer per week/month; caffeine intake: occasional, chocolateCommentsUnknownSex and Gender InformationValueDate RecordedSex Assigned at BirthNot on fileLegal NlgGebgil15/15/2023 7:31 PM EDT Gender IdentityNot on fileSexual OrientationNot on file Last Filed Vital Signs Vital SignReadingTime TakenCommentsBlood Pqqdpebl510/8210 3:09 PM EDT Pulse--Temperature--Respiratory Rate--Oxygen Saturation--Inhaled Oxygen Concentration--Plajoc42.7 kg (140 lb 8 oz)02/07/2025 3:09 PM WQDSkcikt304.1 cm (5' 5 )08/26/2024 3:25 PM EDTBody Mass Index23.38008/26/2024 3:25 PM EDT Plan of Treatment DateTypeDepartmentCare Team (Latest Contact Info)Rzpebmkmqur62/03/2026 2:00 PM ESTProcedure Visit [facility] [address] [place] [address] Justice Milan DO [address] [place], [place] [id number] Health MaintenanceDue DateLast DoneCommentsMMR Vaccines (1 of 1 - Standard series)1986Varicella Vaccines (1 of 2 - 13+ 2-dose series)1998 Hepatitis B Vaccines (1 of 3 - 19+ 3-dose series)02/12/2004HPV Vaccines (1 - 3- dose SCDM series)02/12/2012DTaP/Tdap/Td Vaccines (2 - Td or Tdap)02/18/2022 2COVID-19 Vaccine ( - season)/, 01/15/2021, 06/16/2020, Additional history existsHPV/Gdlnfh93, 04/24/2021, 10/18/2020, Additional history existsCervical Cancer Qedbkpcyp66/24/2027Pap Smear, 10/23/2021Influenza CtjwdogOjbzagdll64/22/2025, 01/06/2024, 12/23/2022, Additional history existsHIB VaccinesAged OutNo longer eligible based on patient's age to complete this topicHepatitis A VaccinesAged OutNo longer eligible based on patient's age to complete this topicIPV Vaccines Aged OutNo longer eligible based on patient's age to complete this topic Meningococcal B VaccineAged OutNo longer eligible based on patient's age to complete this topicMeningococcal VaccineAged OutNo longer eligible based on patient's age to complete this topicPneumococcal Vaccine: Pediatrics (0 to 5 Years) and At-Risk Patients (6 to 64 Years)Aged OutNo longer eligible based on patient's age to complete this topicRotavirus VaccinesAged OutNo longer eligible based on patient's age to complete this topic Procedures Procedure NamePriorityDate/TimeAssociated DiagnosisCommentsPAP SMEARRoutine 01/06/2024 12:00 AM EDTTHINPREP TIS PAP REFLEX HPV MRNA E6/E7 (11670)Routine 10/23/2021 from Last 3 Months or Most Recently Relevant to Health Maintenance Results * Pap Smear (01/06/2024 12:00 AM EDT)Specimen (Source)Anatomical Location / LateralityCollection Method / VolumeCollection TimeReceived TimeSwabCervical swab / Unknown Narrative Authorizing ProviderResult TypeResult StatusFazio Nurse Noms Bcp ObLAB CYTOLOGY ORDERABLESFinal ResultPerforming OrganizationAddressCity/State/ZIP CodePhone Number EXTERNAL LAB * THINPREP TIS PAP REFLEX HPV MRNA E6/E7 (00283) (10/23/2021)ComponentValueRef RangeTest MethodAnalysis TimePerformed AtPathologist SignatureCLINICAL INFORMATION:None givenNOMS LEGACY EXTERNAL LABLMP:NONE GIVENNOMS LEGACY EXTERNAL LABPREV. PAP:NONE GIVENNOMS LEGACY EXTERNAL LABPREV. BX:NONE GIVEN [facility] EXTERNAL LABSOURCE:None givenNOMS LEGACY EXTERNAL LABSTATEMENT OF ADEQUACY:SEE COMMENTNOMS LEGACY EXTERNAL LABComment: Satisfactory for evaluation. Endocervical/transformation zone component absent. INTERPRETATION/RESULT:Negative for intraepithelial lesion or malignancy.[facility] EXTERNAL LABCOMMENT:This Pap test has been evaluated with computer assisted technology.[facility] LABCYTOTECHNOLOGIST:SEE COMMENTNOMS LEGACY EXTERNAL LABComment: [facility], CT(ASCP) CT screening location: [place] [address]. REVIEW INSTRUCTIONAL MATERIALS DIRECTOR:SEE COMMENTNOMS LEGACY EXTERNAL LABComment: [facility], CT(ASCP) CT screening location: [place] [address]. COMMENTSEE COMMENTNOIA LEGACY EXTERNAL LABComment: EXPLANATORY NOTE: The Pap is a screening test for cervical cancer. It is not a diagnostic test and is subject to false negative and false positive results. It is most reliable when a satisfactory sample, regularly obtained, is submitted with relevant clinical findings and history, and when the Pap result is evaluated along with historic and current clinical information. Specimen (Source)Anatomical Location / LateralityCollection Method / Volume Collection TimeReceived Time10/23/2021 Narrative Authorizing ProviderResult TypeResult StatusMary EMMANUEL LABSFinal ResultPerforming OrganizationAddressCity/State/ZIP CodePhone Number [facility] from Last 3 Months or Most Recently Relevant to Health Maintenance Insurance Care Teams Team MemberRelationshipSpecialtyStart DateEnd Date Thomas Mckeon [address] [phone] PCP - [facility]08/20/24
--- OUTSIDE RECORDS SUMMARY | 2025-02-07 19:28 | XMS_ITS | Encounter Summary ---
Author Organization [facility] Address [address] [place] [address] Care Team Providers Care Associate Software Development Engineer Name Role Phone Thomas Mckeon DO Primary Care Provider [phone] Encounter Details DateTypeDepartmentCare Team (Latest Contact Info)Ufsibhlvbhh67/20/2025amboo flowsheet [facility] [address] [place] [address] Milla Covarrubias PA [address] [place] [address] Social History Tobacco UseTypesPacks/DayYears UsedDateSmoking Tobacco: NeverSmokeless Tobacco: NeverAlcohol UseStandard Drinks/WeekCommentsYes0 (1 standard drink = 0.6 oz pure alcohol)Varies 0-3 glasses of wine or beer per week/month; caffeine intake: occasional, chocolateCommentsUnknownSex and Gender InformationValueDate RecordedSex Assigned at BirthNot on fileLegal UdbWlemle12/15/2023 7:31 PM EDT Gender IdentityNot on fileSexual OrientationNot on filedocumented as of this encounter Plan of Treatment DateTypeDepartmentCare Team (Latest Contact Info)Jjbabslvvqh49/03/2026 2:00 PM ESTProcedure Visit [facility] [address] [place] [address] Justice Milan DO [address] [place] [address] documented as of this encounter Visit Diagnoses Not on filedocumented in this encounter Care Teams Team MemberRelationshipSpecialtyStart DateEnd Date Thomas Mckeon DO [address] [phone] PCP - GeneralFamily Medicine08/20/24documented as of this encounter
== END 2025-02-07 19:23 | disposition home or self-care (01) ==
LOC: LAB 19:22
PROVIDERS: PCP Nurse Practitioner Family; Visit Provider Obstetrics & Gynecology
DX: Z01.419 Encounter for gynecological examination (general) (routine) without abnormal findings (principal)
CPT/HCPCS: 87624; 88175

== ENCOUNTER 2025-02-15 17:17 | Outpatient (OUT) | payer BC, SELFPAY ==
--- OUTSIDE RECORDS SUMMARY | 2025-02-07 14:00 | XMS_ITS | Encounter Summary ---
Author Organization [facility] Address [address] [place] [address] Care Team Providers Care Car Starter Name Role Phone hTomas Mckeon DO Primary Care Provider [phone] Reason for Visit * ReasonCommentsWell Women Visit Encounter Details DateTypeDepartmentCare Team (Latest Contact Info)Lundsjkspuk84/27/2025 3:00 PM EDTOffice Visit [facility] [address] [place] [address] Justice Milan DO [address] [facility] [place] [address] Well woman exam with routine gynecological exam; Encounter for screening mammogram for malignant neoplasm of breast Social History Tobacco UseTypesPacks/DayYears UsedDateSmoking Tobacco: NeverSmokeless Tobacco: NeverAlcohol UseStandard Drinks/WeekCommentsYes0 (1 standard drink = 0.6 oz pure alcohol)Varies 0-3 glasses of wine or beer per week/month; caffeine intake: occasional, chocolateCommentsUnknownSex and Gender InformationValueDate RecordedSex Assigned at BirthNot on fileLegal TuiUuzjdp20/15/2023 7:31 PM EDT Gender IdentityNot on fileSexual OrientationNot on filedocumented as of this encounter Last Filed Vital Signs Vital SignReadingTime TakenCommentsBlood Uolwmrus509/8210/ 3:09 PM EDT Pulse--Temperature--Respiratory Rate--Oxygen Saturation--Inhaled Oxygen Concentration--Aayqzj20.7 kg (140 lb 8 oz)02/07/2025 3:09 PM EDTHeight--Body Mass Index23.3805 3:25 PM EDTdocumented in this encounter Progress Notes * Nadya Loyd NP - 02/07/2025 3:00 PM EDT Reason for Appointment: Patient ID: Nathalia Medina is a 39 y.o. female who presents for [facility] Women Visit Patient presents today for Annual Exam. MEDICATIONS Current Outpatient Medications Medication Instructions ??? Azelastine HCl 137 MCG/SPRAY solution ??? Multiple Vitamin (Multi Vitamin) tablet Every 24 hours ??? tretinoin (Retin-A) 0.025 % cream Apply pea size amount to the face, once daily at evening/night time, 30 day supply ALLERGIES No Known Allergies PROBLEMS Active Ambulatory Problems Diagnosis Date Noted ??? No Active Ambulatory Problems Resolved Ambulatory Problems Diagnosis Date Noted ??? Dysmenorrhea 10/18/2022 ??? Menorrhagia with irregular cycle 10/18/2022 Past Medical History: Diagnosis Date ??? Anxiety ??? Asthma (HCC) Grew out ad a child ??? Female infertility ??? Seasonal allergies ??? Spider veins ??? Tinnitus ??? Type O blood, Rh negative ??? Vaccine for human papilloma virus (HPV) types 6, 11, 16, and 18 administered ??? Vaccine for VZV (varicella-zoster virus) ??? Yeast infection HISTORY PAST MEDICAL HISTORY SOCIAL HISTORY Past Medical History: Diagnosis Date ??? Anxiety non medicated management ??? Asthma (HCC) Grew out ad a child ??? Dysmenorrhea 10/18/2022 ??? Female infertility ??? Menorrhagia with irregular cycle 10/18/2022 ??? Seasonal allergies ??? Spider veins ??? Tinnitus ??? Type O blood, Rh negative ??? Vaccine for human papilloma virus (HPV) types 6, 11, 16, and 18 administered ??? Vaccine for VZV (varicella-zoster virus) ??? Yeast infection breast and uses nystatin cream Social History Tobacco Use ??? Smoking status: Never ??? Smokeless tobacco: Never Substance Use Topics ??? Alcohol use: Yes Comment: Varies 0-3 glasses of wine or beer per week/month; caffeine intake: occasional, chocolate ??? Drug use: Never FAMILY HISTORY Family History Problem Relation Name Age of Onset ??? Asthma Mother Gayla rolon ??? Anxiety disorder Mother Gayla rolon ??? Hypertension Mother Gayla rolon ??? Allergies Mother Gayla rolon Seasonal ??? Cancer Father Laurent rolon ??? Diabetes Father Laurent rolon ??? Hypertension Father Laurent rolon ??? No Known Problems Sister ??? Anxiety disorder Maternal Grandmother ??? Clotting disorder Maternal Grandfather ??? Diabetes Paternal Grandmother Lety Rolon ??? Diabetes Paternal Grandfather Laurent rolon SURGICAL HISTORY Past Surgical History: Procedure Laterality Date ??? CYST REMOVAL 2013 from wrist ??? DILATION AND CURETTAGE OF UTERUS 12/10/2019 and 10/06/2020 ??? HYSTEROSCOPY ??? WISDOM TOOTH EXTRACTION REVIEW OF SYSTEMS Review of Systems: Review of Systems Constitutional: Negative. HENT: Negative. Eyes: Negative. Respiratory: Negative. Cardiovascular: Negative. Gastrointestinal: Negative. Genitourinary: Negative. Musculoskeletal: Negative. Skin: Negative. Neurological: Negative. All other systems reviewed and are negative. Hematological: Negative. Endocrine: Negative. Allergic/Immunologic: Negative. OBJECTIVE Objective: Physical Exam Constitutional: Appearance: Normal appearance. She is well-developed. Genitourinary: Vulva normal. Breasts: Breasts are soft. Right: Normal. Left: Normal. Cardiovascular: Rate and Rhythm: Normal rate and regular rhythm. Pulmonary: Effort: Pulmonary effort is normal. Breath sounds: Normal breath sounds. Abdominal: General: Bowel sounds are normal. There is no distension. Palpations: Abdomen is soft. Tenderness: There is no abdominal tenderness. There is no guarding or rebound. Musculoskeletal: General: No swelling. Normal range of motion. Right lower leg: No edema. Left lower leg: No edema. Neurological: Mental Status: She is alert and oriented to person, place, and time. Skin: General: Skin is warm and dry. Psychiatric: Mood and Affect: Mood normal. Behavior: Behavior normal. Vitals and nursing note reviewed. Exam conducted with a recreation therapist present. Vitals: Estimated body mass index is 23.38 kg/m?? as calculated from the following: Height as of 5/15/25: 5' 5 . Weight as of this encounter: 140 lb 8 oz. BP: 110/82 Patient's last menstrual period was 01/14/2025 (approximate). Assessment/Plan ICD-10-CM 1. Well woman exam with routine gynecological exam Z01.419 Pap Smear HPV DNA probe, amplified 2. Encounter for screening mammogram for malignant neoplasm of breast Z12.31 Bilateral screening mammogram Bilateral screening mammogram Annual Exam: Patient presents today for an annual exam. Patient states she is doing well and has no complaints. Pap was obtained without difficulty. Orders Placed This Encounter Procedures ??? HPV DNA probe, amplified ??? Bilateral screening mammogram Follow Up: Patient is to return in one year for annual unless needed otherwise. Documented by Nadya Loyd NP on behalf of: Justice Milan DO documented in this encounter Plan of Treatment DateTypeDepartmentCare Team (Latest Contact Info)Ffaiemslgje90/03/2026 2:00 PM ESTProcedure Visit [facility] [address] [place] [phone] Justice Milan DO [address] [facility] [address] [place] [address] NameTypePriorityAssociated DiagnosesOrder SchedulePap SmearPathology and CytologyRoutine Well woman exam with routine gynecological exam Ordered: 02/07/2025HPV DNA probe, amplifiedMicrobiologyRoutine Well woman exam with routine gynecological exam Ordered: 5Bilateral screening mammogramImagingRoutine Encounter for screening mammogram for malignant neoplasm of breast Expected: 02/07/2025 (Approximate), Expires: 04/09/2026documented as of this encounter Visit Diagnoses Diagnosis Well woman exam with routine gynecological exam Routine gynecological examination Encounter for screening mammogram for malignant neoplasm of breast documented in this encounter Care Teams Team MemberRelationshipSpecialtyStart DateEnd Date Thomas Mckeon [place] [phone] PCP - GeneralFamily Medicine08/20/24documented as of this encounter
--- OUTSIDE RECORDS SUMMARY | 2025-02-15 17:19 | XMS_ITS | Clinical Summary ---
Author Organization [facility] Address [address] [place] [address] Care Team Providers Care Labor Specialist Name Role Phone Thomas Mckeon DO Primary Care Provider [phone] Allergies No known active allergies Medications MedicationSigDispense [...] active problems Resolved Problems ProblemNoted DateDiagnosed DateResolved LehiTfmsghkubbgf48 Menorrhagia with irregular cycle Encounters DateTypeDepartmentCare TkgiPdnxrfctgjg46/27/2025 3:00 PM EDTOffice Visit [facility] [address] [place] [address] Justice Milan, Well woman exam with routine gynecological exam; Encounter for screening mammogram for malignant neoplasm of uqegst9102/07/2025 Clinisync Result Encounter [facility] External Department Unsolicited Justice Milan DO 02/07/2025amboo flowsheet [facility] [address] [place] [address] Justice Milan, DO 01/31/2025 4:00 PM EDTOffice Visit [facility] [address] [place] [address] Milla Covarrubias PA Capillary angioma (Primary Dx); Seborrheic keratosis; Melanocytic nevus of skin of both upper extremities; Lentigo simplex; Gkkumgmc16/20/2025amboo [facility]sheet [facility] [address] [place] [address] Milla Covarrubias PA 01/31/20255947Ehzknr93/13/2025Travelfrom Last 3 Months Immunizations ImmunizationAdministration DatesNext DueInfluenza, injectable, MDCK, preservative free, ztbvlmovvazj23/11/2023,01/10/2022,01/24/2019,01/21/2018 Influenza, injectable, tndgmtrxslag42/01/2018Influenza, injectable, quadrivalent, preservative free01/02/2021,12/31/2019Influenza, seasonal, injectable, preservative free01/06/20249289HTWL-RYH-9 (COVID-19) vaccine, mRNA, spike protein, LNP, bivalent, preservative free, 30 mcg/0.3 mLdose, carli-sucrose xggaxkmfuxb44/29/3797Ggxa50/10/2022 Family History Medical HistoryRelationNameCommentsCancerFatherMike frederickDiabetesFatherMike frederickHypertensionFatherMike frederickClotting disorderMaternal Grandfather Anxiety disorderMaternal GrandmotherAllergiesMotherSue frederickSeasonalAnxiety disorderMotherSue frederickAsthmaMotherSue frederickHypertensionMotherSue frederickDiabetesPaternal GrandfatherMike frederickDiabetesPaternal Grandmother Lety FrederickNo Known ProblemsSisterRelationNameStatusCommentsFatherMike frederickAliveMaternal GrandfatherAliveMaternal GrandmotherDeceasedMotherSue frederickAlivePaternal GrandfatherMike frederickDeceasedPaternal Grandmother Lety FrederickDeceasedSister Social History Tobacco UseTypesPacks/DayYears UsedDateSmoking Tobacco: NeverSmokeless Tobacco: Never Tobacco Cessation:Counseling Given: Not Answered Alcohol UseStandard Drinks/WeekCommentsYes0 (1 standard drink = 0.6 oz pure alcohol)Varies 0-3 glasses of wine or beer per week/month; caffeine intake: occasional, chocolateCommentsUnknownSex and Gender InformationValueDate RecordedSex Assigned at BirthNot on fileLegal IheQgnqbs02/15/2023 7:31 PM EDT Gender IdentityNot on fileSexual OrientationNot on file Last Filed Vital Signs Vital SignReadingTime TakenCommentsBlood Iraghwbj350/8210 3:09 PM EDT Pulse--Temperature--Respiratory Rate--Oxygen Saturation--Inhaled Oxygen Concentration--Rdljer15.7 kg (140 lb 8 oz)02/07/2025 3:09 PM IMZNbyqun085.1 cm (5' 5 )08/26/2024 3:25 PM EDTBody Mass Index23.38008/26/2024 3:25 PM EDT Plan of Treatment DateTypeDepartmentCare Team (Latest Contact Info)Ioltpptgfic24/03/2026 2:00 PM ESTProcedure Visit [facility] [address] [place] [address] Justice Milan DO [address] [place] [address] Health MaintenanceDue DateLast DoneCommentsMMR Vaccines (1 of 1 - Standard series)1986Varicella Vaccines (1 of 2 - 13+ 2-dose series)1998 Hepatitis B Vaccines (1 of 3 - 19+ 3-dose series)02/12/2004HPV Vaccines (1 - 3- dose SCDM series)02/12/2012DTaP/Tdap/Td Vaccines (2 - Td or Tdap)02/18/2022 2COVID-19 Vaccine (2024- season), 01/15/2021, 06/16/2020, Additional history tosntlTxudyapud94/31/802537/07/2019HPV/Cotest , 04/24/2021, 10/18/2020, Additional history existsCervical Cancer Lcwexateh39/24/2027Pap Smear, 10/23/2021Influenza AwaacytOrfvjhtvw05/22/2025, 01/06/2024, 12/23/2022, Additional history existsHIB VaccinesAged OutNo longer eligible based on patient's age to complete this topic Hepatitis A VaccinesAged OutNo longer eligible based on patient's age to complete this topicIPV VaccinesAged OutNo longer eligible based on patient's age to complete this topicMeningococcal B VaccineAged OutNo longer eligible based on patient's age to complete this topicMeningococcal VaccineAged OutNo longer eligible based on patient's age to complete this topicPneumococcal Vaccine: Pediatrics (0 to 5 Years) and At-Risk Patients (6 to 64 Years)Aged OutNo longer eligible based on patient's age to complete this topicRotavirus VaccinesAged Out No longer eligible based on patient's age to complete this topic Procedures Procedure NamePriorityDate/TimeAssociated DiagnosisCommentsIGP,APTIMA HPV,AGE UHKVDrwylxa65/27/2025 2:58 PM EDT PAP TZTPTGurfqvg42/24/2024 12:00 AM EDTTHINPREP TIS PAP REFLEX HPV MRNA E6/E7 (45482)Ibeddnp0410/23/2021 BI MAMMOGRAM SCREENING TOMOSYNTHESIS XVIJYUVEPJdwhdjq44/04/2020 12:00 PM EST Solitary cyst of left breast Abscess of the breast and nipple from Last 3 Months or Most Recently Relevant to Health Maintenance Results * IGP,APTIMA HPV,AGE GDLN (02/07/2025 2:58 PM EDT)ComponentValueRef RangeTest MethodAnalysis TimePerformed AtPathologist SignatureAGE GDLN ACOG TESTINGNote. TBHComment: ?? TESTS ? RESULT ??FLAG ??UNITS ?REF RANGE ??LAB ?? Clinician Provided Cytology Information ?? Source.............Cervix;Endocervix ?? No. of containers..01 ThinPrep Vial Age Algo ACOG Ally... ??30-65 ? 01 ?FLAG LEGEND: ?L-Low Normal,H-High Normal,LL-Alert Low,HH-Alert High <-Panic Low,>-Panic High,A-Abnormal,AA-Critical Abnormal Performed at: 01 =G ?[facility] ?? [address] [place], [place] ??[phone] ?? Rosaura Melo MD, IGP, APTIMA HPV, RFX 16/18,45Note.TBHComment: ?? TESTS ? RESULT ??FLAG ??UNITS ?REF RANGE ??LAB DIAGNOSIS: ?02 ?? NEGATIVE FOR INTRAEPITHELIAL LESION OR MALIGNANCY. Specimen adequacy: ?02 ?? Satisfactory for evaluation. ??Endocervical and/or squamous metaplastic ?? cells (endocervical component) are present. Performed by: ? 02 ?? Denise Ambrocio, Educational Specialist (ASCP) . ? 02 Note: ? Note ?02 ?? The Pap smear is a screening test designed to aid in the ?? detection of premalignant and malignant conditions of the ?? uterine cervix. ??It is not a diagnostic procedure and ?? should not be used as the sole means of detecting cervical ?? cancer. ??Both false-positive and false-negative reports do ?? occur. Test Methodology: ? Note ?02 ?? This liquid based ThinPrep(R) pap test was interpreted ?? using the [employer](R) Genius(TM) Cervical Algorithm whole ?? slide imaging system. HPV Genotype Reflex ?? Note ?02 ?? Criteria not met, HPV Genotype not performed. ?FLAG LEGEND: ?L-Low Normal,H-High Normal,LL-Alert Low,HH-Alert High <-Panic Low,>-Panic High,A-Abnormal,AA-Critical Abnormal Performed at: 02 WB ?[facility] ?? [address] [place], [place] ??[phone] ?? Rosaura Melo MD, HPV APTIMANegativeNegativeTBHComment: This nucleic acid amplification test detects fourteen high- risk HPV types (16,18,31,33,35,39,45,51,52,56,58,59,66,68) without differentiation. Performed at: ??=G - [address] ??[id number] Professor Of Law: Rosaura Melo MD, Phone: ??[phone] Performed at: ??WB - [address] ??[id number] Professor Of Law: Rosaura Melo MD, Phone: ??[phone] Specimen (Source)Anatomical Location / LateralityCollection Method / Volume Collection TimeReceived Time02/07/2025 2:58 PM EDT1 7:43 PM EDT Narrative CLINISY[facility] - 2025 1:08 PM EDT CERVIX ENDOCERVIX Authorizing ProviderResult TypeResult StatusCorey Kayli JARAMILLO BLOOD ORDERABLES Final ResultPerforming OrganizationAddressCity/State/ZIP CodePhone Number [facility] * Pap Smear (01/06/2024 12:00 AM EDT)Specimen (Source)Anatomical Location / LateralityCollection Method / VolumeCollection TimeReceived TimeSwabCervical swab / Unknown Narrative Authorizing ProviderResult TypeResult StatusFazio Nurse Lit Bcp ObLAB CYTOLOGY ORDERABLESFinal ResultPerforming OrganizationAddressCity/State/ZIP CodePhone Number EXTERNAL LAB * THINPREP TIS PAP REFLEX HPV MRNA E6/E7 ([id number]) (10/23/2021)ComponentValueRef RangeTest MethodAnalysis TimePerformed AtPathologist SignatureCLINICAL INFORMATION:None givenNOMS LEGACY EXTERNAL LABLMP:NONE GIVENNOVA LEGACY EXTERNAL LABPREV. PAP:NONE GIVENNOVA LEGACY EXTERNAL LABPREV. BX:NONE GIVEN NOM LEGACY EXTERNAL LABSOURCE:None givenNOVA LEGACY EXTERNAL LABSTATEMENT OF ADEQUACY:SEE COMMENTNOVA LEGACY EXTERNAL LABComment: Satisfactory for evaluation. Endocervical/transformation zone component absent. INTERPRETATION/RESULT:Negative for intraepithelial lesion or malignancy.[facility] LEGAC[facility] EXTER[facility] LABCOMMENT:This Pap test has been evaluated with computer assisted technology.[facility] LEGFORMERLY [facility] EXTERNAL LABCYTOTECHNOLOGIST:SEE COMMENTNOVA LEGACY EXTERNAL LABComment: , CT(ASCP) CT screening location: [facility] [place] [address]. REVIEW THIMBLE PRESS OPERATOR:SEE COMMENTNOVA LEGACY EXTERNAL LABComment: [facility], CT(ASCP) CT screening location: [place] [address]. COMMENTSEE COMMENTNOVA LEGACY EXTERNAL LABComment: EXPLANATORY NOTE: The Pap [...] TimeReceived Time10/23/2021 Narrative Authorizing ProviderResult TypeResult StatusMary Ford MDECW LABSFinal ResultPerforming OrganizationAddressCity/State/ZIP CodePhone Number [facility] * Bilateral screening mammogram with tomosynthesis (06/16/2019 12:00 PM EST) Anatomical RegionLateralityModalityBreastBilateralMammographySpecimen (Source) Anatomical Location / LateralityCollection Method / VolumeCollection Time Received Time Narrative 06/16/2019 12:00 AM EST PERFORMED AT [facility] LOCATION:[id number] cat2 Procedure Note CONVERSION, GENERIC / Mary Ford MD - 10/18/2022 PERFORMED AT [facility] LOCATION:[id number] cat2 Authorizing ProviderResult TypeResult StatusMary Ford MDIMG BI PROCEDURES Final Result from Last 3 Months or Most Recently Relevant to Health Maintenance Insurance Care Teams Team MemberRelationshipSpecialtyStart DateEnd Date Thomas Mckeon DO [address] [phone] PCP - GeneralMadison County Health Care Systemly Medicine08/20/24
--- OUTSIDE RECORDS SUMMARY | 2025-02-15 17:19 | XMS_ITS | Encounter Summary ---
Author Organization [facility] Address [address] [place] [address] Care Team Providers Care Environmental Web Crawler Name Role Phone Thomas Mckeon DO Primary Care Provider [phone] Encounter Details DateTypeDepartmentCare Team (Latest Contact Info)Qdvtqvmttpw13/27/2025amboo flowsheet D[facility]EL[facility] [address] [place] [address] Justice Milan DO [facility] [address] [place], [facility] Social History Tobacco UseTypesPacks/DayYears UsedDateSmoking Tobacco: NeverSmokeless Tobacco: NeverAlcohol UseStandard Drinks/WeekCommentsYes0 (1 standard drink = 0.6 oz pure alcohol)Varies 0-3 glasses of wine or beer per week/month; caffeine intake: occasional, chocolateCommentsUnknownSex and Gender InformationValueDate RecordedSex Assigned at BirthNot on fileLegal SliGwgdsm99/15/2023 7:31 PM EDT Gender IdentityNot on fileSexual OrientationNot on filedocumented as of this encounter Plan of Treatment DateTypeDesaint mary's regional medical centerCare Team (Latest Contact Info)Ulufvxreste19/03/2026 2:00 PM ESTProcedure Visit DANIELA MASON [address] [place] [address] Justice Milan DO [address], [facility]11 documented as of this encounter Visit Diagnoses Not on filedocumented in this encounter Care Teams Team MemberRelationshipSpecialtyStart DateEnd Date Thomas Mckeon DO [address] [phone] PCP - GeneralFamily Medicine08/20/24documented as of this encounter
--- OUTSIDE RECORDS SUMMARY | 2025-02-15 17:19 | XMS_ITS | Encounter Summary ---
Author Organization [facility] Address [address] [place] [address] Care Team Providers Care Professor Of Practice Name Role Phone Thomas Mckeon DO Primary Care Provider [phone] Encounter Details DateTypeDepartmentCare Team (Latest Contact Info)Cxuzhzhnuan29/27/2025linisync Result Encounter [facility] Unsolicited Justice Milan DO [address], [facility] Social History Tobacco UseTypesPacks/DayYears UsedDateSmoking Tobacco: NeverSmokeless Tobacco: NeverAlcohol UseStandard Drinks/WeekCommentsYes0 (1 standard drink = 0.6 oz pure alcohol)Varies 0-3 glasses of wine or beer per week/month; caffeine intake: occasional, chocolateCommentsUnknownSex and Gender InformationValueDate RecordedSex Assigned at BirthNot on fileLegal WxsRzyevl81/15/2023 7:31 PM EDT Gender IdentityNot on fileSexual OrientationNot on filedocumented as of this encounter Plan of Treatment DateTypeDepartmentCare Team (Latest Contact Info)Nkddjjlvdec24/03/2026 2:00 PM ESTProcedure Visit [facility] [address] [place] [id number] Justice Milan DO [address], [facility] documented as of this encounter Procedures Procedure NamePriorityDate/TimeAssociated DiagnosisCommentsIGPAPTIMA HPV,AGE MRVTNsauwjy56/27/2025 2:58 PM EDT documented in this encounter Results * IGP,APTIMA HPV,AGE GDLN (02/07/2025 2:58 [...] at: 01 =G ?[facility] ?? [address] [place] ??[phone] ?? Rosaura Melo MD, IGP, APTIMA HPV, RFX 16/18,45Note.TBHComment: ?? TESTS ? RESULT ??FLAG ??UNITS ?REF RANGE ??LAB DIAGNOSIS: ?02 ?? NEGATIVE FOR INTRAEPITHELIAL LESION OR MALIGNANCY. Specimen adequacy: ?02 ?? Satisfactory for evaluation. ??Endocervical and/or squamous metaplastic ?? cells (endocervical component) are present. Performed by: ? 02 ?? Denise Ambrocio, Brand Activation Manager (ASCP) . ? 02 Note: ? Note [...] pap test was interpreted ?? using the [employer](R) Genius(TM) Cervical Algorithm whole ?? slide imaging system. HPV Genotype Reflex ?? Note ?02 ?? Criteria not met, HPV Genotype not performed. ?FLAG LEGEND: ?L-Low Normal,H-High Normal,LL-Alert Low,HH-Alert High <-Panic Low,>-Panic High,A-Abnormal,AA-Critical Abnormal Performed at: 02 WB ?[facility] [address], [place] ??[phone] ?? Rosaura Melo MD, HPV APTIMANegativeNegativeTBHComment: This nucleic acid amplification test detects fourteen high- risk HPV types (16,18,31,33,35,39,45,51,52,56,58,59,66,68) without differentiation. Performed at: ??=G - [facility] [address] ??[id number] Calender Operator Helper: Rosaura Melo MD, Phone: ??[phone] Performed at: ??WB - [facility] ??[id number] Calender Operator Helper: Rosaura Melo MD, Phone: ??[phone] Specimen (Source)Anatomical Location / LateralityCollection Method / Volume Collection TimeReceived Time02/07/2025 2:58 PM EDT1 7:43 PM EDT Narrative [facility] - 2025 1:08 PM EDT CERVIX ENDOCERVIX Authorizing ProviderResult TypeResult StatusCorey Kayli DOLAB BLOOD ORDERABLES Final ResultPerforming OrganizationAddressCity/State/ZIP CodePhone Number [facility] documented in this encounter Visit Diagnoses Not on filedocumented in this encounter Care Teams Team MemberRelationshipSpecialtyStart DateEnd Date Thomas Mckeon DO [address] [phone] PCP - GeneralFamily Medicine08/20/24documented as of this encounter
--- OUTSIDE RECORDS SUMMARY | 2025-02-15 17:21 | XMS_ITS | CCD ---
Author Organization [facility] Care Team Providers Care Qa Automation Developer Name Role Phone ZHOU REESE Attending Unavailable Thomas Mckeon III Primary Care Physician [phone] ZHOU REESE Attending Unavailable ZHOU REESE Admitting Unavailable Juan Yuan Admitting Unavailable Juan Yuan Attending Unavailable Juan Yuan Attending Unavailable Juan Yuan Admitting Unavailable ZHOU REESE Attending Unavailable ZHOU REESE Admitting Unavailable Thomas Mckeon Attending Unavailable Thomas Mckeon Admitting Unavailable Keyonna Keane Unavailable [phone] Thomas Mckeon DO Primary Care Provider [phone] Thomas Mckeon DO Primary Care Provider Thomas Mckeon DO Primary Care Provider SAMUEL HERNANDEZ Attending Unavailable MAYURI COVARRUBIAS Attending Unavailable JUSTICE MILAN Attending Unavailable Medications Current Medications MedicationDrug Class(es)DatesSig (Normalized)Sig (Original)azelastine hydrochloride 0.137 mg/actuat metered dose nasal spray (13 sources)Histamine-1 Receptor AntagonistStart: 76-72-6208Ygrqfwjgwq HCl 137 MCG/SPRAY solution 05/26/2023 ActiveStart: 69-63-9943ritl 1 puff(s) nasal route twice dailyAzelastine HCl 137 MCG/SPRAY solution USE 1 PUFF IN EACH NOSTRIL TWICE A DAY 05/26/2023 Activeibuprofen 800 mg oral tablet (2 sources)Nonsteroidal Anti-inflammatory DrugStart: 53-97-9602Ndjkzrdez Active 800 MG PO every 6 to 8 hours October 06, 2020 12:00amStart: 12-10-2019 End: 12-28-7286Gbqzawqhh Discontinued 600 MG PO every 6 to 8 hours December 10, 2019 12:00am October 06, 2020 7:50amMultiple Vitamin (Multi Vitamin) tablet (13 sources)Multiple Vitamin (Multi Vitamin) tablet 1 (one) time each day at the same time ActiveMultiple Vitamin (Multi Vitamin) tablet 1 (one) time each day at the same time. ActivetraMADol hydrochloride 50 mg oral tablet (2 sources)Opioid AgonistStart: 12-10-2019 End: 37-78-1741Fupmhkvc Active 50 MG PO every 6 to 8 hours 10 3 October 06, 2020 12:00amtretinoin 0.25 mg/ml topical cream (5 sources)RetinoidStart: 05-61-0531ostiwtrhe (Retin-A) 0.025 % cream Indications: Rhytides Apply pea size amount to the face, once daily at evening/night time, 30 day supply 45 g 11 01/31/2025 Active Completed/Discontinued Medications MedicationDrug Class(es)DatesSig (Normalized)Sig (Original)doxycycline hyclate 100 mg oral capsule (1 source)Tetracycline-class DrugStart: 12-10-2019 End: 91-92-6379sfky 1 capsule by mouth twice dailyDoxycycline Hyclate (Vibramycin) 100 mg capsule Discontinued 100 MG PO Twice daily 14 7 December 10, 2019 12:00am October 06, 2020 7:50am Problems Active Problems Problem ClassificationProblemDateDocumented DateEpisodic/ChronicOther and unspecified benign neoplasm (1 source)Melanocytic nevi of right upper limb, including shoulder; Translations: [Benign neoplasm of skin ofupper limb, including shoulder] 36-59-2876RklpxkmkWidcv circulatory disease (1 source)Spider nevus; Translations: [Nevus, non-neoplastic]56-16-3653Nhgvskrn Other ear and sense organ disorders (2 sources)Ear sensations - finding; Translations: [Other specified disorders of right ear]74-24-4887UxowhcacHfknt nutritional; endocrine; and metabolic disorders (1 source)H/O: hypothyroidism; Translations: [Personal history of other endocrine, nutritional and metabolic disease]EpisodicOther nutritional; endocrine; and metabolic disorders (1 source)Personal history of other endocrine, nutritional and metabolic disease EpisodicOther screening for suspected conditions (not mental disorders or infectious disease) (2 sources)Patient encounter status; Translations: [Encounter for screening mammogram for malignant neoplasm of breast]64-35-4513YkuiiancMmilv skin disorders (1 source)Seborrheic keratosis; Translations: [Other seborrheic keratosis] 60-25-5680FixlmojfPwzxi skin disorders (1 source)Lentigo simplex; Translations: [Other melanin hyperpigmentation] 75-79-6767EwdtxunwDhoxp skin disorders (1 source)Wrinkled skin; Translations: [Other specified disorders of the skin and subcutaneous tissue]68-86-4280OmuktsekWryol upper respiratory disease (2 sources)Chronic rhinitis; Translations: [Chronic rhinitis]49-19-2984Absecni Other upper respiratory disease (1 source)Nasal congestionEpisodicOtitis media and related conditions (3 sources)Unspecified Eustachian tube disorder, bilateral; Translations: [Disorder of middle ear]Episodic Past or Other Problems Problem ClassificationProblemDateDocumented DateEpisodic/ChronicMenstrual disorders (20 sources)Menstrual cramp; Translations: [Dysmenorrhea, unspecified]Onset: 10-18-2022 Resolved: 25-08-2986Llaadqp Results Test NameValueInterpretationReference RangeFacilityIGP,APTIMA HPV,AGE GDLNon 96-86-7664SXH GDLN ACOG TESTINGNote.NOMS HealthcareComment on above:TESTS RESULT FLAG UNITS REF RANGE LAB Clinician Provided Cytology Information Source.............Cervix;Endocervix No. of containers..01 ThinPrep Vial Age Algo ACOG Ally... 30-65 FLAG LEGEND: L-Low Normal,H-High Normal,LL-Alert Low,HH-Alert High <-Panic Low,>-Panic High,A-Abnormal,AA-Critical Abnormal Performed at: 01 =[address] [place] [address] Rosaura Melo MD, HPV APTIMANegativeNegativeNOMS HealthcareComment on above:This nucleic acid amplification test detects fourteen high- risk HPV types (16,18,31,33,35,39,45,51,52,56,58,59,66,68) without differentiation. Performed at: =[facility] [id number] Retail Client Manager: Rosaura Melo MD, Phone: [phone] Performed at: [facility] [address] [id number] Retail Client Manager: Rosaura Melo MD, Phone: [phone] IGP, APTIMA HPV, RFX 16/18,45Note.NOMS HealthcareComment on above:TESTS RESULT FLAG UNITS REF RANGE LAB DIAGNOSIS: 02 NEGATIVE FOR INTRAEPITHELIAL LESION OR MALIGNANCY. Specimen adequacy: 02 Satisfactory for evaluation. Endocervical and/or squamous metaplastic cells (endocervical component) are present. Performed by: Savanna Ambrocio, Hand Rounder ([facility]) . 02 Note: Note 02 The Pap smear is a screening test designed to aid in the detection of premalignant and malignant conditions of the uterine cervix. It is not a diagnostic procedure and should not be used as the sole means of detecting cervical cancer. Both false-positive and false-negative reports do occur. Test Methodology: Note 02 This liquid based ThinPrep(R) pap test was interpreted using the [employer](R) [employer](TM) Cervical Algorithm whole slide imaging system. HPV Genotype Reflex Note 02 Criteria not met, HPV Genotype not performed. FLAG LEGEND: L-Low Normal,H-High Normal,LL-Alert Low,HH-Alert High <-Panic Low,>-Panic High,A-Abnormal,AA-Critical Abnormal Performed at: 02 [facility] [address] [place] [address] Rosaura Melo MD, CERVIX ENDOCERVIX CLINISYNCNOMS HealthcareIGP,APTIMA HPV,AGE GDLNon 10-05-2464QTC [facility] ACOG TESTINGNote.NOMS HealthcareComment on above:TESTS RESULT FLAG UNITS REF RANGE LAB Clinician Provided Cytology Information Source.............Cervix;Endocervix No. of containers..01 ThinPrep Vial Age Algo ACOG Ally... 30 FLAG LEGEND: L-Low Normal,H-High Normal,LL-Alert Low,HH-Alert High <-Panic Low,>-Panic High,A-Abnormal,AA-Critical Abnormal Performed at: 01 =[address] [address] Rosaura Melo MD, HPV APTIMANegativeNegativeNOMS HealthcareComment on above:This nucleic acid amplification test detects fourteen high- risk HPV types (16,18,31,33,35,39,45,51,52,56,58,59,66,68) without differentiation. Performed at: =[address] [id number] Retail Client Manager: Rosaura Melo MD, Phone: [phone] Performed at: [address] [id number] Retail Client Manager: Rosaura Melo MD, Phone: [phone] IGP, APTIMA HPV, RFX 16/18,45Note.NOMS HealthcareComment on above:TESTS RESULT FLAG UNITS REF RANGE LAB DIAGNOSIS: 02 NEGATIVE FOR INTRAEPITHELIAL LESION OR MALIGNANCY. THIS SPECIMEN WAS RESCREENED PART OF OUR AIRCRAFT ENGINE INSTALLER PROGRAM. Specimen adequacy: 02 Satisfactory for evaluation. Endocervical and/or squamous metaplastic cells (endocervical component) are present. Performed by: 02 Antonia Baldwin, Prison Classification Counselor (ASC) QC reviewed by: 02 Keyonna De La Torre, Prison Classification Counselor (ASC) . 02 Note: Note 02 The Pap smear is [...] the use of an image guided system. HPV Genotype Reflex Note 02 Criteria not met, HPV Genotype not performed. FLAG LEGEND: L-Low Normal,H-High Normal,LL-Alert Low,HH-Alert High <-Panic Low,>-Panic High,A-Abnormal,AA-Critical Abnormal Performed at: [address] [address] Rosaura Melo MD, BRUSH-SPATULA CERVIX ENDOCERVIX [facility] [id number] 90-07-9237Vcucvhfs report Cyto stain Doc (Cvx/Vag)NoteInvalid Interpretation [facility] Hospital - YoungstownComment on above:Result Comment: TESTS RESULT FLAG UNITS REF RANGE LAB Clinician Provided Cytology Information Source.............Endocervix No. of containers..01 ThinPrep Vial DIAGNOSIS: 01 NEGATIVE FOR INTRAEPITHELIAL LESION OR MALIGNANCY. FUNGAL ORGANISMS MORPHOLOGICALLY CONSISTENT WITH MARIANGEL SPECIES ARE PRESENT. Specimen adequacy: 01 Satisfactory for evaluation. No endocervical component is identified. Performed by: Javier Diaz, Prison Classification Counselor ([facility]) . 01 Note: Note 02 The Pap [...] <-Panic Low,>-Panic High,A-Abnormal,AA-Critical Abnormal Performed at: 01 [facility] Cyto Histo [address] [place] [address] Jeromy Mcdowell MD, [address] [address] Rosaura Melo MD, Pcuptjhzy By: #### [id number] ####[facility] [address] [place], [id number] 16+18+31+33+35+39+45+51+52+56+58+59+66+68 DNA Probe+sig amp Ql (Cvx)Negative Invalid Interpretation CodeNegativeFisher Greater Baltimore Medical CenterComment on above: Result Comment: This nucleic acid amplification test detects fourteen high-risk HPV types (16,18,31,33,35,39,45,51,52,56,58,59,66,68) without differentiation. Performed at: [facility] Cyto Histo [address] [place], [place] [id number] MD July Pinzon Performed at: =[facility] [address] [id number] MD Kameron KaplanPerformed By: #### [id number] ####[facility] Xqqqqfvzme404 Alex Reis [id number] 10-24-2022 Collection TechniqueBRUSH-SPATULAMercy Health Fairfield HospitalComment on above:Performed By: #### [id number] ####[facility] Twanrplbcj827 Alex Reis FN11860Ywpxcffidonra Body SiteENDOCERVIX NormalTrinity Health System West CampusComment on above:Performed By: #### [id number] ####[facility] Pissgnpicz467 Alex Reis PT[address] Physician Orderon 63-57-4697Jyfzuwclb Order [id number]#1.00CD:[address] [place], [place] [address]Coding Summary.on 55-29-6613Qndopa Summary. CD:650682LM:3631535CJm4rPf+PGhlYWQ+DV8QYSRyZ63niUYpwV5GR8fNOP0WWAFRGVNAZF6AJW7bf ZW3TMpmK6DbtfUr [file] b2xs (more content not included)...NormalFishR Adams Cow[facility] Shock Trauma CenterPhysician Orderon 57-45-4650Lozvhknhy Order [id number]#1.00CD:127NoSelect Medical Cleveland Clinic Rehabilitation Hospital, Edwin ShawPhysician Orderon 16-84-7617Fncewxywt Order [id number]#1.00CD:[address] [place], [place] [address]Consent for Treatmenton 04-39-1080Glukovr for Treatment [id number]#1.00CD:[address] [place], [place] [address]Physician Orderon 60-98-3605Uczxpcthq Order [id number]#1.00CD:127Mer[facility] Fairfield HospitalCoding Summary.on 33-32-2279Iacgtf Summary. CD:606997OM:1673404MWa0eLu+PGhlYWQ+QQ3FJLGiG91sfSKfnN9AQ0jPHA0PSAOIEXARUN0HUF4fz YJ1JPumZ5KonhXk [file] b2xs (more content not included)...NormalFisher Mt. Washington Pediatric HospitalG Quanton 92-26-5061CPO.beta subunit Uw6846 m[IU]/mLHigh1-3[facility] Comment on above:Result Comment: GESTATIONAL AGE HCG RANGE (mIU/mL) NON- <1-3 0.2-1 WEEKS 5-50 1-2 WEEKS 50-500 2-3 WEEKS 100-5,000 3-4 WEEKS 500-10,000 4-5 WEEKS 1,000-50,000 5-6 WEEKS 10,000-100,000 6-8 WEEKS 15,000-200,000 8-12 WEEKS 10,000-100,000Performed By: #### [id number] ####[facility] [address] [place], [place] [address]OEEUIMGJSBciuvon By: SYSTEM SYSTEM on 37-69-4521LIU.beta subunit Jw8608 m[IU]/mLHigh1 - 3 mIU/mLIN[facility] Remisol Coding Summary.on 41-87-1775Ozdmyw Summary. CD:963765DK:7695181HBa0cJw+PGhlYWQ+KY6OUAOmA25ruIIjcG9GJ1qYOF5KRXMCUIXPTK0DPP9jz JQ6QDfnI5YscgLn [file] b2xs (more content not included)...NormalTrinity Health System West CampusConsent for Treatmenton 62-95-2408Snftijw for Treatment [id number]#1.00CD:127NormalTrinity Health System West CampusPhysician Orderon 81-01-9394Rwthbijiy Order [id number]#1.00CD:127NoSelect Medical Cleveland Clinic Rehabilitation Hospital, Edwin ShawBhCG Quanton 66-49-8404RMH.beta subunit Sv6650 m[IU]/mLHigh1-3Fisher [facility] Medical CenterComment on above:Result Comment: GESTATIONAL AGE HCG RANGE (mIU/mL) NON- <1-3 0.2-1 WEEKS 5-50 1-2 WEEKS 50-500 2-3 WEEKS 100-5,000 3-4 WEEKS 500-10,000 4-5 WEEKS 1,000-50,000 5-6 WEEKS 10,000-100,000 6-8 WEEKS 15,000-200,000 8-12 WEEKS 10,000-100,000Performed By: #### [id number] ####[facility] [address] [place], [place] [address]FSHJLEGDLOamyert By: SYSTEM SYSTEM on 682095-iduhewwozblrmf D3 [Mass/Vol]29.2 ng/mLLow30.0 - 100.0 ng/mLINSPIRE SPECIALTY HOSPITAL [facility] RemisolHCG.beta subunit Hf8078 m[IU]/mLHigh1 - 3 mIU/mLINSPIRE SPECIALTY HOSPITAL [facility] RemisolTSH Qn2.98 m[IU]/LNormal0.34 - 5.60 mcIU/mLINSPIRE SPECIALTY HOSPITAL [facility] RemisolConsent for Treatmenton 68-22-6248Mkhotqi for Treatment [id number]#1.00CD:127NoSelect Medical Cleveland Clinic Rehabilitation Hospital, Edwin ShawPhysician Orderon 35-40-2941Fkxvrbbyp Order [id number]#1.00CD:127NoSelect Medical Cleveland Clinic Rehabilitation Hospital, Edwin ShawTSHon 65-75-6526SCU Qn2.98 m[IU]/LNormal0.34-5.60Tr[facility] System West CampusComment on above:Performed By: #### [id number], [id number] ####[facility] [address] [place], [place] [address]Jyxohcj D 25 Hydroxyon 148043-payyrmkocxjdse D3 [Mass/Vol]29.2 ng/mLLow30.0-100.0Tr[facility] Health System West CampusComment on above:Result Comment: Vitamin D deficiency has been defined as a level of serum 25-OH vitamin D less than 20 ng/mL (1,2) by the [place] of Medicine and an Endocrine Society practice guideline. The Endocrine Society further defined vitamin D insufficiency as a level between 21 and 29 ng/mL (2). 1. IOM ([place] of Medicine). 2010. Dietary reference intakes for calcium and D. [place]: The National Academies Press. 2. Waylon MF, Teagan NC, Dirk MARTINEZ, et al. Evaluation, treatment, and prevention of vitamin D deficiency: an Endocrine Society clinical practice guideline. JCEM. 2010; 96 (7):1911-30.Performed By: #### [id number], [id number] ####[facility] [address] [place] [address] Coding Summary.on 65-68-4144Ghtmac Summary. CD:738459RX:2423500OVu2zUw+PGhlYWQ+DQ0GIMJrL92ksZHwbQ4XT5wJBI7PHYLZQQVHTB1HWE7lt WN5ZVwdL3YiomXf [file] b2xs (more content not included)...[facility] Fairfield HospitalCHEMISTRY Ordered By: SYSTEM SYSTEM on 66-16-3195Llstbyzbzzo [Mass/Vol]189 mg/eELfyhnm316 - 200 mg/dLFTMC RemisolCholesterol in HDL [Mass/Vol]42 mg/dLInvalid Interpretation CodeFTMC RemisolCholesterol in LDL [Mass/Vol]126 mg/dLNormal <=129mg/dLFTMC RemisolCholesterol in VLDL [Mass/Vol]17 mg/dLNormal7 - 40 mg/dL [facility] RemisolTriglyceride [Mass/Vol]84 mg/dLNormal<=149mg/dLFTMC RemisolConsent for Treatmenton 76-79-1460Zouejzg for Treatment [id number]#1.00CD:127[address] HospitalLipid Panelon 09-94-6942Txhhniugpzj [Mass/Vol]189 mg/vVVumqkg134-104KuncpiTrinity Health System West CampusComment on above:Performed By: #### [id number] ####[facility] [address] [place], [place] [address]Llfducrcosr in HDL [Mass/Vol]42 mg/dLInvalid Interpretation CodeTrinity Health System West Campus Comment on above:Result Comment: HDL > or equal to 60 mg/dL: Low cardiovascular risk HDL < 40 mg/dL : High cardiovascular riskPerformed By: #### [id number] ####[facility] [address]xxeiix[address]NLe [place], [place] [address]Oteswzbbnlm in LDL [Mass/Vol]126 mg/dLNormal<=129Tr[facility] System West CampusComment on above: Performed By: #### [id number] ####[facility] [address]gib[address]NLe [place], [place] [address]Jksuemvnudh in VLDL [Mass/Vol]17 mg/dLNormal7-40 [facility] CampusComment on above:Performed By: #### [id number] ####[facility] [address] [place] [address] Triglyceride [Mass/Vol]84 mg/dLNormal<=149Tr[facility] West CampusComment on above:Performed By: #### [id number] ####[facility] [address] [place], [place] [address]Ralmjgaev Orderon 72-12-6403Rkvateidl Order [id number]#1.00CD:127Mer[facility] HospitalCHEMISTRYOrdered By: SYSTEM SYSTEM on 61-96-5966Zycrhfsishye [Mass/Vol] 5.10 ng/mLInvalid Interpretation CodeINSPIRE SPECIALTY HOSPITAL – [facility] RemisolHemogram CBC Without Diffon 14-42-9893Ekhahqazvcv distribution width (RBC) [Ratio]12.7 %Fnkauh16.9-15.3 [facility] HospitalComment on above:Performed By: #### CBCNO #### [place] [address] USAHematocrit (Bld) [Volume fraction]36.5 %Ujuagy85.0-46.4 [facility] HospitalComment on above:Performed By: #### CBCNO #### [place] [address] USAHemoglobin (Bld) [Mass/Vol]12.6 g/oVHcmbea01.8-15.4 [facility] HospitalComment on above:Performed By: #### CBCNO #### [place] [address] USAMCH (RBC) [Entitic mass]31.2 anIiggiu85.7-34.3FMercy Health St. Joseph Warren HospitalComment on above:Performed By: #### CBCNO #### [place] [address] USAMCV (RBC) [Entitic vol]90.2 hEVomfkl12-149WaqetmircMercy Health West HospitalComment on above:Performed By: #### CBCNO #### [place] [address] USAMean Corpuscular HGB Conc34.6 g/vPPqkksd00.0-35.0Mer[facility] West HospitalComment on above:Performed By: #### CBCNO #### [place] [address] USAPlatelet mean volume (Bld) [Entitic vol]7.6 fLNormal 6.3-10.7FMercy Health St. Joseph Warren HospitalComment on above:Result Comment: PERFORMED BY: [place] [address] PATHOLOGIST FINISH OFF OPERATOR APRIL PIRES M.D.Performed By: #### CBCNO #### [place] [address] USAPlatelets (Bld) [#/Vol]216 10*3/sYEpwagr177-507LxrjcatswMercy Health West HospitalComment on above:Performed By: #### CBCNO #### [facility] [address] [place] [address] USARBC (Bld) [#/Vol]4.04 10*6/uLNormal3.60-5.00[facility] HospitalComment on above:Performed By: #### CBCNO #### [facility] [address] [place] [id number] USAWBC (Bld) [#/Vol]7.2 10*3/uLNormal3.8-11.6FMercy Health St. Joseph Warren HospitalComment on above:Performed By: #### CBCNO #### [facility] [address] [place], [place] [address] USALon 10-06-2020 Specimen: [id number] Received: 10/06/20 Status: ALFRED Moe Num: [id number] Spec Type: Surgical Subm Dr: Mary Ford MD-NOMS Tissues: A Products of Conception - Spontaneous or Missed (PRODUCTS OF CONCEPT Procedures: HE Stain/3, Gross/Micro L4 Patient Age/Sex Location Account Attending Physician Nathalia Medina 35/F [place] [id number] Mary Ford MD-NOMS SPEC NUM: [id number] RECD: 10/06/20 STATUS: ALFRED MOE NUM: [id number] KATIA: 10/06/20- SUBM DR: Mary Ford MD-NOMS ENTERED: 10/06/[address]: KARI TYPE: Surgical DEPT: S ENTERED BY: [id number] RECV BY: [id number] ORDERED: HE Stain/3, Gross/Micro L4 ORDERED: HE [...] maternal cell contamination. See separate report from [employer] ([facility] Case #: [id number]) for details. Addendum Signed (signature on file) Heri Solo MD 10/19/20 1424 Specimen: [id number] Received: 10/06/20 Status: ALFRED Moe Num: [id number] Spec Type: Surgical Subm Dr: Mary Ford MD-NOMS Tissues: A Products of Conception - Spontaneous or Missed (PRODUCTS OF CONCEPT Procedures: FAUSTINO Stain/3, Gross/Micro L4 Patient: Nathalia Medina [id number] (Continued) Specimen: [id number] Received: 10/06/20 (Continued) Signed (signature on file) April Pires MD 10/09/20 1615 Specimen: [id number] Received: 10/06/20 Status: ALFRED Moe Num: [id number] Spec Type: Surgical Subm Dr: Mary Ford MD-DANIELA Tissues: A Products of Conception - Spontaneous or Missed (PRODUCTS OF CONCEPT Procedures: HE Stain/3, Gross/Micro L4 Patient: Nathalia Medina [id number] (Continued) Specimen: [id number] Received: 10/06/20 (Continued) Pathological Diagnosis Products of [...] chorionic villi, or grapelike vesicles are identified. Recruiting Internship sections are submitted to [employer] in [facility] for genetic testing. Recruiting Internship sections are submitted in three cassettes labeled A1-A3. (JS/JS) Microscopic Description Three glass slides with H E stained material have been examined. The microscopic findings support the above pathologic diagnosis. [id number] Specimen: [id number] Received: 10/06/20 Status: ALFRED Moe Num: [id number] Spec Type: Surgical Subm Dr: Mary Ford MD-NOMSusi Tissues: A Products of Conception - Spontaneous or Missed (PRODUCTS OF CONCEPT Procedures: HE Stain/3, Gross/Micro L4 Patient: Nathalia Medina [id number] (Continued) Signed (signature on file) April Pires MD 10/09/20 2549 [facility] HospitalAnticardiolipin IgG/M/A, Qnon 09-26-2020 Anticardiolipin Ab, IgA,Qn<0Vvnanr9-23ZwkcuzieoMercy Health West HospitalComment on above:Result Comment: Negative: <12 Indeterminate: 12 - 20 Low-Med Positive: >20 - 80 High Positive: >80 Performed at: - [facility] [id number] Retail Client Manager: Chas Junior PhD, Phone: [phone] By: #### FACV LEIDM, LUPANTCOAG, CARDIO GMA, MTHFRDNA #### [facility] , #### TSH3 #### [place] [address] USAAnticardiolipin Ab, IgG,Qn<5Ueygcd4-13IochlkfwoMercy Health West HospitalComment on above:Result Comment: Negative: <15 Indeterminate: 15 - 20 Low-Med Positive: >20 - 80 High Positive: >80Performed By: #### FACV LEIDM, LUPANTCOAG, CARDIO GMA, MTHFRDNA #### [facility] , #### TSH3 #### [place] [address] USAAnticardiolipin Ab, IgM,Ef57Jfdwjq9-39GjkckussyMercy Health West HospitalComment on above:Result Comment: Negative: <13 Indeterminate: 13 - 20 Low-Med Positive: >20 - 80 High Positive: >80Performed By: #### FACV LEIDM, LUPANTCOAG, CARDIO GMA, MTHFRDNA #### [facility] , #### TSH3 #### [place] [address] USAFactor V Leiden Mutationon 58-43-8125Kteqei V LeidenNormal .[facility] HospitalComment on above:Result Comment: Result: Negative (no mutation found) Factor V Leiden [...] the workup for venous thrombosis include the [id number] mutation in the factor II (prothrombin) gene, protein S and C deficiency, and antithrombin deficiencies. Anticardiolipin antibody and lupus anticoagulant analysis may be appropriate for certain patients, as well as homocysteine levels. Contact your local [facility] for information on how to order additional testing if desired. Genetic counselors are available for health care providers to discuss results at [phone]-[facility] [place] ([id number]). Methodology: DNA analysis of the Factor V gene was performed by allele- specific PCR. The diagnostic sensitivity and specificity is >99% for both. Molecular-based testing is highly accurate, but as in any laboratory test, diagnostic errors may occur. All test results must be combined with clinical information for the most accurate interpretation. This test was developed and its performance characteristics determined by [facility]. It has not been cleared or approved by the Food and Drug Administration. References: Willow Barrientos (1995). Clin Lab Med 16:169-186. Sharmin Livingston, PhD, FACMG Denise Vega, PhD, FACMG Rodolfo Hummel, PhD, FACMG Marbella Jean Baptiste, PhD, FACMG Noel Yusuf, PhD, FACMG Skinny Xiao PhD, FAC Performed at: [facility] [address] [place], [place] [id number] Retail Client Manager: Ayan Salvador formerly [facility], Phone: [phone] By: #### FACKasie LEIDM, LUPANTCOAG, CARDIO GMA, MTHFRDNA #### [facility] , #### TSH3 #### [place] [address] USALupus Anticoagulant Compon 34-46-3391Qpyvuy Prothrombin Time (dPt)35.9Xcotwa6.0-55.0[facility] HospitalComment on above: Performed By: #### VINNIE LEIDM, LUPANTCOAG, CARDIO GMA, MTHFRDNA #### [facility] , #### TSH3 #### [place] [id number] USAdPT Confirm Ratio0.44Izenjk5.00-1.40[facility] HospitalComment on above:Performed By: #### FACV LEIDM, LUPANTCOAG, CARDIO GMA, MTHFRDNA #### [facility] , #### TSH3 #### [facility] [address] [place] [address] USADRVVT Lupus33.4Itymxl3.0-47.0[facility] HospitalComment on above:Performed By: #### FACV LEIDM, LUPANTCOAG, CARDIO GMA, MTHFRDNA #### [facility] , #### TSH3 #### [facility] [address] [place] [address] USAInterpretationComment:Normal.[facility] West HospitalComment on above:Result Comment: No lupus anticoagulant was detected. Performed at: - [facility] [id number] Retail Client Manager: Stan Suárez MD, Phone: [phone] By: #### FACV LEIDM, LUPANTCOAG, CARDIO GMA, MTHFRDNA #### [facility] , #### TSH3 #### [facility] [address] [place] [address] USAPTT-LA37.2Szwbuv3.0-51.9[facility] Comment on above:Performed By: #### FACV LEIDM, LUPANTCOAG, CARDIO GMA, MTHFRDNA #### [facility] , #### TSH3 #### [facility] [address] [place] [address] USAThrombin Time16.5Bfyeeg4.0-23.0[facility] HospitalComment on above:Performed By: #### FACV LEIDM, LUPANTCOAG, CARDIO GMA, MTHFRDNA #### [facility] , #### TSH3 #### [facility] [address] [place] [address] USAMTHFR DNA Analysison 08-55-8469UYTEX DNA AnalysisNormal. [facility] HospitalComment on above:Result Comment: Result: C677T Single mutation (C677T) identified Interpretation: This individual is heterozygous for the MTHFR C677T variant (one copy). The MTHFR F2686V variant was not identified. This combination of [...] developed and its performance characteristics determined by [employer]. It has not been cleared or approved by the Food and Drug Administration. References: Razia LD, Tyrese Q. Am J Epidemiol 2000; 151(9):862-877. Tamia MM, Sandy JA. Arch Pathol Lab Med 2007; 131(6):872-884. Frosst P et al. Adalgisa Ashlyn 1995; 10(1):111-113. Hickey SE et al. Ashlyn Med 2013; 15(2):153-156. Lackawaxen C et al. Obstet Gynecol 2011; 118(3):730-740. Obdulio B et al. Eur J Epidemiol 2013; 28(8):621-647. Sharmin Livingston, PhD, FACMG Denise Vega, PhD, FACMG Rodolfo Hummel, PhD, FACMG Marbella Jean Baptiste, PhD, FACMG Noel Yusuf, PhD, FACMG Skinny Xiao, PhD, FACMG Performed at: [facility] [address] [facility], [facility], [place] [id number] Retail Client Manager: Ayan Salvador formerly [facility], Phone: [phone] PERFORMED BY: [facility] IVAN KUMAR [address] PATHOLOGIST FINISH OFF OPERATOR APRIL PIRES M.D.Performed By: #### FACV LEIDM, LUPANTCOAG, CARDIO GMA, MTHFRDNA #### [facility] , #### TSH3 #### [facility] [address] [place] [address] USAThyroid Stimulating Hormoneon 09-77-8699ONX Qn1.04 m[IU]/L Normal0.45-5.33[facility] HospitalComment on above:Result Comment: PERFORMED BY: [place] [address] PATHOLOGIST FINISH OFF OPERATOR APRIL PIRES M.D.Performed By: #### FACV LEIDM, LUPANTCOAG, CARDIO GMA, MTHFRDNA #### [facility] , #### TSH3 #### [facility] [address] Vital Signs Date TimeVital SignValuePerforming LxonojtvsIjzshmlx32-65-7471 15:09-0400Body mass index (BMI) [Ratio]23.38 kg/g3Dcqmx Kayli DO Work Phone: [facility] HospitalHoaospjvub98-80-0229 15:09-0400Body .73 kgCorey Kayli DO Work Phone: [facility] HospitalEpwnktomwm51-79-4679 15:09-0400Diastolic blood mm[Hg]Justice Kayli DO Work Phone: [facility] HospitalZxhgwpvnqw08-08-9030 15:09-0400Systolic blood phsdohtv008 mm[Hg]Justice Kayli DO Work Phone: [facility] HospitalVrkhnjgoip98-16-6071 15:25-0400Body jxdwgo344.1 cmPaul Biedenbach DO Work Phone: [facility] HospitalVtuidnivfm19-32-4200 15:25-0400Body mass index (BMI) [Ratio]24.3 kg/m2Paul Biedenbach DO Work Phone: [facility] HospitalKphvxhvowm69-29-6655 15:25-0400Body tngxug19.22 kgPaul Biedenbach DO Work Phone: [facility] HospitalWljenazirh73-20-1052 14:28-0400Body mass index (BMI) [Ratio]24.32 kg/m4Sbxkv Kayli DO Work Phone: [facility] HospitalFbbhhxkeff60-65-0662 14:28-0400Body bawors99.28 kgCorey Kayli DO Work Phone: [facility] HospitalGwnbraqzjc20-78-2767 14:28-0400Diastolic blood jgterusl37 mm[Hg]Justice Kayli DO Work Phone: [facility] HospitalXowsljwjon49-76-0454 14:28-0400Systolic blood mm[Hg]Justice Kayli DO Work Phone: [facility] HospitalLkkptshyql48-56-4455 08:00-0500Body wuixls657.1 cmKeyonna Keane Other [employer] Other [phone] 08:00-0500Body mass index (BMI) [Ratio] 24.43 kg/v7AlkcvdwzKeyonna Keane Other [employer] Other [phone] 08:00-0500Body itxrcb46.59 kgKeyonna Keane Other [employer] Other [phone] 08:00-0500Diastolic blood ebgvzsod52 mm[Hg] Keyonna Keane Other [employer] Other [phone] 08:00-0604GiO9% (BldA) [Mass fraction]99 % Keyonna Keane Other [employer] Other [phone] 08:00-0500Systolic blood kiiszoyj132 mm[Hg] Keyonna Keane Other [employer] Other 02-13-2023 13:10-0500Heart rate89 /minJadarryl Yuan [facility]02-13-2023 13:10-4322WwQ2% (BldA) [Mass fraction]100 %Juan Yuan [facility]02-13-2023 13:10-0500Body cbsmtsfrohe85.88 [degF]Juan Yuan [facility]02-13-2023 13:09-0500 Diastolic blood damnbreh67 mm[Hg]Juan Yuan [facility]02-13-2023 13:09-0500Mean blood lnyjtdeu400 mm[Hg]Juan Yuan [facility]02-13-2023 13:09-0500 Systolic blood ggefgxvt356 mm[Hg]Juan Yuan [facility] Encounters Encounter DateEncounter TypeCare ProviderFacilityStart: 02-07-2025 End: 57-08-7067Qipdceu encounter procedureCorey Kayli DO Work Phone: noms HealthcareStart: 02-07-2025 End: 78-80-6787Argdxlxs preventive med est patient 18-39 yrsCorey Kayli DO Work Phone: [facility] OBGYNComment on above:Well woman exam with routine gynecological exam; Encounter for screening mammogram for malignant neoplasm of breastStart: 02-07-2025 End: 50-94-9708jddwnpgtdkFUCDD FAZIONot AvailableStart: 02-07-2025 End: 65-54-9328Rnsood flowsheetCorey Kayli DO Work Phone: [facility] OBGYNStart: 02-07-2025 End: 89-15-9340Ebkmtv flowsheetCorey Kayli DO Work Phone: [facility]BGYNStart: 02-07-2025 End: 85-49-0879Kituvtfze Result EncounterCorey Kayli DO Work Phone: NO[facility] External Department UnsolicitedStart: 01-31-2025 End: 44-50-3782Sgnvkh outpatient new 30 minutesN[facility] Work Phone: noMS Schmid DermatologyComment on above:Capillary angioma (Primary Dx); Seborrheic keratosis; Melanocytic nevus of skin of both upper extremities; Lentigo simplex; RhytidesStart: 01-31-2025 End: 87-58-9521bcngzepbalFOQIQ NORTHEIMNot AvailableStart: 01-31-2025 End: 60-76-5026Tktasp [facility] Work Phone: noMS Schmid DermatologyStart: 01-31-2025 End: 67-30-3804Ibxrvm [facility] Work Phone: noMS Schmid DermatologyStart: 08-26-2024 End: 65-10-4958glljjyrfcrSFFI S BIEDENBACHNot AvailableStart: 08-26-2024 End: 99-07-8859Lxmxui outpatient visit 15 minutesPaul S Biedenbach DO Work Phone: noms ENT NORWALKComment on above:Ear fullness, right (Primary Dx); Chronic rhinitis; Tensor tympani spasm disorder, leftStart: 08-26-2024 End: 53-99-4122Fowgmk flowsheetPaul S Biedenbach DO Work Phone: noms ENT NORWALKStart: 08-26-2024 End: 11-68-0566Mggixm flowsheetPaul S Biedenbach DO Work Phone: [facility] NORWALKStart: 01-06-2024 End: 78-74-7382Xlhnje flowsheetCorey Kayli DO Work Phone: noms BCP OBStart: 01-06-2024 End: 73-69-2283Wrhupejlu Result EncounterCorey Kayli DO Work Phone: noms External Department UnsolicitedStart: 01-06-2024 End: 45-90-7918Ziwdcavgh Result EncounterCorey Kayli DO Work Phone: noms External Department UnsolicitedStart: 01-06-2024 End: 05-58-9520Ygkipzx encounter procedureCorey Kayli DO Work Phone: [facility] Work Phone: Start: 01-06-2024 End: 73-90-0492Sqzrisby preventive med est patient 18-39 yrsCorey Kayli DO Work Phone: noms BCP OBComment on above:Well woman exam with routine gynecological examStart: 09-30-2023 End: 50-21-0575bvxblyegxtIgtkfrzee [facility] Work Phone: Start: 09-30-2023 End: 91-06-5072Strjbvm encounter procedureUnc Health Lenoir Physician GroupLicking [facility] Work Phone: Start: 05-26-2023 End: 68-36-8445vjmlfwngcaRldvggbp [employer] Other [facility] [employer] Other Start: 85-16-2096Mojitr outpatient new 30 [address]. Anne Hospitaltart: 10-24-2022 End: 13-10-0217wiiineciwvEvnnp D KastenFacility:FTMCStart: 05-27-2022 End: 74-87-5859susnrjvbwuFhfzg D KastenFacility:FTMCStart: 05-27-2022 End: 10-26-3468Vxeigsu encounter procedureJames D Kwabena [facility] Start: 04-22-2022 End: 55-41-0012hlsomhcauvIUZVUO ROSSIFacility:FTMCStart: 04-22-2022 End: 35-84-7421Qzyzaof encounter procedureBROMAYRA REESE [facility] Start: 04-18-2022 End: 46-19-7338kdpkyzzutcWDBVFR ROSSIFacility:FTMCStart: 04-18-2022 End: 55-92-1783Dhlduru encounter procedureBROMAYRA REESE [facility] Start: 01-17-2022 End: 21-11-3338tujlibjvehHxfjaan Renetta MikeFacility:FTMCStart: 01-17-2022 End: 86-81-4182Nqjodem encounter procedureRolland Renetta Mckeon III [facility] Start: 07-30-2021 End: 59-79-9462Kobmpkj encounter procedureZHOU REESE [facility] Start: 01-30-2021 End: 35-88-9951ejcoxxmirhOOZPYQWVUMedicine [facility] Procedures DateProcedureProcedure DetailPerforming ClinicianStart: 63-34-1544OMJ,APTIMA HPV,AGE GDLNCorey Kayli DO Work Phone: Start: 40-31-4117CKS,APTIMA HPV,AGE GDLNCorey Kayli DO Work Phone: Start: 80-59-8401Swqbrnlqofr observation [Identifier] in Cervix by Cyto stainPaul Beataenbach DO Work Phone: start: 51-08-8726Bjzcvjorxxs observation [Identifier] in Cervix by Cyto stainCorey Kayli DO Work Phone: Plan of Treatment DateCare ActivityDetailAuthorStart: 11-52-0984Rhwvfqplq for malignant neoplasm of cervixNOMS HealthcareStart: 68-05-4339Xoxhjfpwn for malignant neoplasm of cervixNOMS HealthcareStart: 02-14-2026 End: 56-54-9165Jfhrhri encounter /03/2026 2:00 PM EST Procedure Visit [facility] [address] [place] [phone] Justice Milan, DO [address] [place] [address] NOMSusi [facility] OBGYNStart: 02-07-2025 End: 38-66-9517Xsxrwig encounter procedureNO BCP OBComment on above:Arrived Start: 02-07-2025 End: 29-30-6813MM Breast - bilateral ScreeningBilateral screening mammogram Imaging Routine Encounter for screening mammogram for malignant neoplasm of breast Expected: 02/07/2025 (Approximate), Expires: 04/09/2026[facility] Comment on above:Expected: 02/07/2025 (Approximate), Expires: 04/09/2026Start: 01-31-2025 End: 04-92-8157Asfmyuz encounter thmopjbrb99/20/2025 4:00 PM EDT Office Visit [facility] [address] [place] [phone] Mayuri Covarrubias PA [address] [place] [phone] ArrivedNOMS Schmid DermatologyComment on above:ArrivedStart: 01-11-2025 End: 55-53-4297Aocttfs encounter cwuhbpxbe68/30/2025 3:00 PM EDT Office Visit [facility] [address] [place] [address] Justice Milan, DO [address] [place] [address] NOMS BCP OBStart: 59-75-3389QGGYU-19 Vaccine ( season)COVID-19 Vaccine ( season)NOM HealthcareStart: 12-13-2024 Influenza vaccinationInfluenza Vaccine (#1)NOM HealthcareStart: 10-23-2024 Screening for malignant neoplasm of cervixPap SmearNOMD HealthcareStart: 01-06-2024 End: 26-82-0649Cbsuwwg encounter ambddrvis95/24/2024 2:00 PM EDT Office Visit [facility] [address] [place] [address] Justice Milan, DO [address] [place] [address] ArrivedMAMMOTH HOSPITAL OBComment on above:ArrivedStart: 52-65-5771Llucuxbtf vaccinationInfluenza Vaccine (#1)NOM HealthcareStart: 22-17-3446DLnC/Tdap/Td Vaccines (2 - Td or Tdap)DTaP/Tdap/Td Vaccines (2 - Td or Tdap)NOM HealthcareStart: 89-08-1544HQQ Vaccines (1 - 3-dose SCDM series)HPV Vaccines (1 - 3-dose SCDM series)NOM HealthcareStart: 01-13-1316Gguheqyqw B Vaccines (1 of 3 - 19+ 3-dose series)Hepatitis B Vaccines (1 of 3 - 19+ 3-dose series)NOM HealthcareStart: 00-03-2990Dlprjcd of varicella vaccinationVaricella Vaccines (1 of 2 - 13+ 2-dose series)[facility] HealthcareStart: 91-12-9968HED Vaccines (1 of 1 - Standard series)MMR Vaccines (1 of 1 - Standard series)[facility]OMSaint [facility] HospitalCytology Cervical or vaginal smear or scraping studyPap Smear Pathology and Cytology Routine Well woman exam with routine gynecological exam Ordered: 01/06/2024[facility] Work Phone: comment on above:Ordered: 01/06/2024ytology Cervical or vaginal smear or scraping studyPap Smear Pathology and Cytology Routine Well woman exam with routine gynecological exam Ordered: 02/07/2025[facility] Work Phone: comment on above:Ordered: 02/07/2025Human papilloma virus DNA [Presence] in Unspecified specimen by Probe with amplificationHPV DNA probe, amplified Microbiology Routine Well woman exam with routine gynecological exam Ordered: 01/06/2024[facility] HospitalComment on above:Ordered: 01/06/2024 Human papilloma virus DNA [Presence] in Unspecified specimen by Probe with amplificationHPV DNA probe, amplified Microbiology Routine Well woman exam with routine gynecological exam Ordered: 02/07/2025[facility] HospitalComment on above: Ordered: 02/07/2025 Immunizations Immunization DateImmunizationNotesCare YsckonogXwahsrzf10-04-8355hrowiaonq virus vaccine, unspecified formulationCorey Kayli DO Work Phone: [facility] HospitalWpoemctham79-41-9023bywmhliwc, seasonal, injectable, preservative freePaMultiCare Health DO Work Phone: [facility] HospitalNaeqgvhyhm59-03-3304dubsarkyx virus vaccine, unspecified formulationHorizon Medical Center PA Work Phone: [place] [address]Vrqgxbdonv17-74-8831Cbmestulm, injectable, Madin Hampden Canine Kidney, preservative free, quadrivalentCorey Kayli DO Work Phone: [place] [address]Lrfdpbroto26-67-8609hzwkexixj virus vaccine, unspecified formulationCorey Kayli DO Work Phone: [place] [address]Pdpqexoiyh24-69-0946wtimbzz toxoid, reduced diphtheria toxoid, and acellular pertussis vaccine, adsorbedCorey Kayli DO Work Phone: [place] [address]Vzqviemfzp15-25-0319Fcyxsldey, injectable, Madin Jeaneth Canine Kidney, preservative free, quadrivalentCorey Kayli DO Work Phone: [place] [address]Pcrypyghdd24-49-5203IWYO-KSL-0 (COVID-19) vaccine, mRNA, spike protein, LNP, bivalent, preservative free, 30 mcg/0.3 mL dose, carli-sucrose formulationCorey Kayli DO Work Phone: [place] [address]Iomxbjkpcx82-72-6468iezdcjhiu, injectable, quadrivalent, preservative freeCorey Kayli DO Work Phone: [facility] HospitalCtldtaqqof41-14-5518TFNIW-02 mRNA, Comirnaty (Pfizer)[facility]02-12-2021COVID-19 mRNA, Comirnaty (Pfizer)[facility]09-18-2020influenza, injectable, quadrivalent, preservative freeCorey Kayli DO Work Phone: [facility] HospitalOkbrmjebjl73-77-0081Gphrrerri, injectable, Madin Hampden Canine Kidney, preservative free, quadrivalentCorey Kayli DO Work Phone: [facility] HospitalMyzoaffzoh70-65-5439uqvdouqrm, injectable, quadrivalent, contains preservativeCorey Kayli DO Work Phone: [facility] HospitalZxtapnmeai61-57-5700Kwckvwgnv, injectable, Madin Jeaneth Canine Kidney, preservative free, quadrivalentCorey Kayli DO Work Phone: [facility] Payers DatePayer CategoryPayerPolicy [id number] [id number] 23-02-9420Hpfnjve Health InsuranceGREENE MEMORIAL HOSPITALIN [id number] MERITQUAIL [facility] [place] [id number] 2022-Present [phone] [address] [place] [id number] Health [id number] 2.16.840.1.333854.3.579.2.900 [id number] 2.16.840.1.050615.3.57[id number] 2.16840.1.563256.3.57[id number] 2.16.840.1.004059.3.57[id number] 2.16.840.1.447216.3.57[id number] 2.16840.1.152439.3.57[id number] 2.16.840.1.377331.3.57[id number] 2.16840.1.464090.3.57[id number] 2.16840.1.170556.3.579.2.1259Self-paySelf Pay [id number] Social History DateTypeDetailFacilityTobacco smoking statusBarnesville Hospitaltart: 01-21-2023 End: 28-42-6337Asl Assigned At [facility] GeneralTobacc smoking statusNo Smoking Status EnteredRegency Hospital Company CenterStart: 10-06-2020 End: 49-96-1660Vkdpeut smoking status NHISNever smoked tobacco (finding) [facility] CenterStart: 66-26-9595Gmy Assigned At [facility] Medical Centertart: 33-91-0291Quizqoj use and exposure Smokeless tobacco non-userVA HOSPITAL HealthcareStart: 01-06-2024 End: 60-42-5233Axwzhqylu beverage intakeCurrent drinker of alcohol (finding)[facility] HealthcareStart: 01-21-2023 End: 32-61-3519Wbeecqk of Social functionNOMD HealthcareStart: 54-23-0270Rrwdisq CommentVaries 0-3 glasses of wine or beer per week/month; caffeine intake: occasional, chocolateNOMS HealthcareStart: 31-31-5550Ocr assigned at birthNot on fileVA HOSPITAL HealthcareStart: 24-88-1527CfjFpccswJONC Healthcare Clinical Notes 05-26-2023 to 02-07-2025 Note Date & UoriUrhoBqtmntck94-63-1879 History of Present illness Narrative* Nadya Loyd NP - 02/07/2025 3:00 PM EDT Reason for Appointment: Patient ID: Nathalia Medina is a 39 y.o. female who presents for Well Women Visit Patient presents today for Annual Exam. MEDICATIONS Current Outpatient Medications Medication Instructions Azelastine HCl 137 MCG/SPRAY solution Multiple Vitamin (Multi Vitamin) tablet Every 24 hours tretinoin (Retin-A) 0.025 % cream Apply pea size amount to the face, once daily at evening/night time, 30 day supply ALLERGIES No Known Allergies PROBLEMS Active Ambulatory Problems Diagnosis Date Noted No Active Ambulatory Problems Resolved Ambulatory Problems Diagnosis Date Noted Dysmenorrhea 10/18/2022 Menorrhagia with irregular cycle 10/18/2022 Past Medical History: Diagnosis Date Anxiety Asthma (HCC) Grew out ad a child Female infertility Seasonal allergies Spider veins Tinnitus Type O blood, Rh negative Vaccine for human papilloma virus (HPV) types 6, 11, 16, and 18 administered Vaccine for VZV (varicella-zoster virus) Yeast infection HISTORY PAST MEDICAL HISTORY SOCIAL HISTORY Past Medical History: Diagnosis Date Anxiety non medicated management Asthma (HCC) Grew out ad a child Dysmenorrhea 10/18/2022 Female infertility Menorrhagia with irregular cycle 10/18/2022 Seasonal allergies Spider veins Tinnitus Type O blood, Rh negative Vaccine for human papilloma virus (HPV) types 6, 11, 16, and 18 administered Vaccine for VZV (varicella-zoster virus) Yeast infection breast and uses nystatin cream Social History Tobacco Use Smoking status: Never Smokeless tobacco: Never Substance Use Topics Alcohol use: Yes Comment: Varies 0-3 glasses of wine or beer per week/month; caffeine intake: occasional, chocolate Drug use: Never FAMILY HISTORY Family History Problem Relation Name Age of Onset Asthma Mother Gayla thomas Anxiety disorder Mother Gayla thomas Hypertension Mother Gayla thomas Allergies Mother Gayla thomas Seasonal Cancer Father Laurent thomas Diabetes Father Laurent thomas Hypertension Father Laurent thomas No Known Problems Sister Anxiety disorder Maternal Grandmother Clotting disorder Maternal Grandfather Diabetes Paternal Grandmother Lety Thomas Diabetes Paternal Grandfather Laurent thomas SURGICAL HISTORY Past Surgical History: Procedure Laterality Date CYST REMOVAL 2013 from wrist DILATION AND CURETTAGE OF UTERUS 12/10/2019 and 10/06/2020 HYSTEROSCOPY WISDOM TOOTH EXTRACTION REVIEW OF SYSTEMS Review [...] nursing note reviewed. Exam conducted with a canine deputy present. Vitals: Estimated body mass index is 23.38 kg/m as calculated from the following: Height as of 08/26/24: 5' 5 . Weight as of this [...] without difficulty. Orders Placed This Encounter Procedures HPV DNA probe, amplified Bilateral screening mammogram Follow Up: Patient is to return in one year for annual unless needed otherwise. Documented by Nadya Loyd NP on behalf of: Justice Milan DO documented in this encounterSullivan County Memorial HospitalDxjoqklwdc93-81-4232 History of Present illness Narrative* Samuel Hernandez DO - 08/26/2024 3:15 PM EDT Subjective Patient ID: Nathalia Medina is a 39 y.o. female who presents for Tinnitus (Thumping in left ear) HPI This patient presents for recheck of right-sided ear fullness. Recent onset of twitching sensation of her left ear. Denies any dizziness or pain. Presents today for evaluation. Review of Systems Patient continues to describe fullness present in her right ear. Denies any dizziness. Episodic difficulties with twitching sensation behind her left ear drum. Has not noticed any change of hearing, pain, dizziness, otorrhea. The rest of her review of systems is negative Allergies as of 08/26/2024 (No Known Allergies) Past Medical History: Diagnosis Date Anxiety non medicated management Asthma Grew out ad a child Dysmenorrhea 10/18/2022 Female infertility Menorrhagia with irregular cycle 10/18/2022 Seasonal allergies Spider veins Tinnitus Type O blood, Rh negative Vaccine for human papilloma virus (HPV) types 6, 11, 16, and 18 administered Vaccine for VZV (varicella-zoster virus) Yeast infection breast and uses nystatin cream Current Outpatient Medications: Azelastine HCl 137 MCG/SPRAY solution, , Disp: , Rfl: Multiple Vitamin (Multi Vitamin) tablet, 1 (one) time each day at the same time, Disp: , Rfl: Past Surgical History: Procedure Laterality Date CYST REMOVAL 2013 from wrist DILATION AND CURETTAGE OF UTERUS 12/10/2019 and 10/06/2020 HYSTEROSCOPY WISDOM TOOTH EXTRACTION Social History Socioeconomic History Marital status: Spouse name: Not on file Number of children: Not on file Years of education: Not on file Highest education level: Not on file Occupational History Not on file Tobacco Use Smoking status: Never Smokeless tobacco: Never Substance and Sexual Activity Alcohol use: Yes Comment: Varies 0-3 glasses of wine or beer per week/month; caffeine intake: occasional, chocolate Drug use: Never Sexual activity: Not Currently Partners: Male control/protection: Male Sterilization Comment: My just has a vacestomy and we had three miscarriage Other Topics Concern Not on file Social History Narrative Exercises: walking, Home exercises Living with: spouse Pets: 1 dog Social Drivers of Health Financial Resource Strain: Not on file Food Insecurity: Not on file Transportation Needs: Not on file Physical Activity: Not on file Stress: Not on file Social Connections: Not on file Intimate Partner Violence: Not on file Housing Stability: Not on file Objective ENT Physical Exam General Examination: General overview: Normal, age-appropriate, no evidence of distress Head: Normocephalic, atraumatic Eyes: Pupils are equally round and reactive to light and accommodation, extraocular muscles are intact Ears: External ear architecture within normal limits, ear canals are patent, tympanic membranes areintact. Nose: External nose unremarkable, nares patent, septum intact, mild congestion Oral cavity: Mucosa moist, no evidence of ulcer, mass, or lesion Throat: Clear Neck/thyroid: Neck supple, full range of motion, no cervical lymphadenopathy, no evidence of thyromegaly Lymph nodes: No cervical lymphadenopathy Skin: Warm and dry, no evidence of suspicious lesions, no rash Heart: No jugular venous distention, point of maximal impulse normal Lungs: Good air movement, no audible wheezing, no shortness of breath Chest: Normal shape and expansion Abdomen: Normal, soft, nontender, nondistended Musculoskeletal: Cervical spine normal, full range of motion Extremities: No clubbing, cyanosis, or edema Peripheral pulses: 2+ radial, 2+ carotid Neurologic: Alert and oriented, cranial nerves 2-12 are grossly intact Psych: Alert and oriented, normal affect, no evidence of distress Assessment/Plan Diagnoses and all orders for this visit: Ear fullness, right Comments: patient will call if her symptoms are worsening Chronic rhinitis Comments: continue azelastine Tensor tympani spasm disorder, left Comments: do not recommend any medical intervention at this time. Recheck if needed Patient is encouraged to proceed with any activities that may reduce her stress level. We will see her back if her symptoms are getting worse documented in this encounterS[facility] [id number] History of Present illness Narrative* Mary Botello LPN - 01/06/2024 2:00 PM EDT Reason for Appointment: Patient ID: Nathalia Medina is a 38 y.o. female who presents for [facility] Visit Patient presents today for Annual Exam. MEDICATIONS Current Outpatient Medications Medication Instructions Azelastine HCl 137 MCG/SPRAY solution USE 1 PUFF IN EACH NOSTRIL TWICE A DAY Multiple Vitamin (Multi Vitamin) tablet Every 24 hours ALLERGIES No Known Allergies PROBLEMS Active Ambulatory Problems Diagnosis Date Noted No Active Ambulatory Problems Resolved Ambulatory Problems Diagnosis Date Noted Dysmenorrhea 10/18/2022 Menorrhagia with irregular cycle 10/18/2022 Past Medical History: Diagnosis Date Anxiety Asthma (CMS/HCC) Grew out ad a child Seasonal allergies Spider veins Type O blood, Rh negative Vaccine for human papilloma virus (HPV) types 6, 11, 16, and 18 administered Vaccine for VZV (varicella-zoster virus) Yeast infection HISTORY PAST MEDICAL HISTORY SOCIAL HISTORY Past Medical History: Diagnosis Date Anxiety non medicated management Asthma (CMS/HCC) Grew out ad a child Dysmenorrhea 10/18/2022 Menorrhagia with irregular cycle 10/18/2022 Seasonal allergies Spider veins Type O blood, Rh negative Vaccine for human papilloma virus (HPV) types 6, 11, 16, and 18 administered Vaccine for VZV (varicella-zoster virus) Yeast infection breast and uses nystatin cream Social History Tobacco Use Smoking status: Never Smokeless tobacco: Never Substance Use Topics Alcohol use: Yes Comment: Varies 0-3 glasses of wine or beer per week/month; caffeine intake: occasional, chocolate Drug use: Never FAMILY HISTORY Family History Problem Relation Name Age of Onset Asthma Mother Gayla thomas Anxiety disorder Mother Gayla thomas Hypertension Mother Gayla thomas Allergies Mother Gayla thomas Seasonal Cancer Father Laurent thomas Diabetes Father Laurent thomas Hypertension Father Laurent thomas No Known Problems Sister Anxiety disorder Maternal Grandmother Clotting disorder Maternal Grandfather Diabetes Paternal Grandmother Lety Thomas Diabetes Paternal Grandfather Laurent thomas SURGICAL HISTORY Past Surgical History: Procedure Laterality Date CYST REMOVAL 2013 from wrist DILATION AND CURETTAGE OF UTERUS 12/10/2019 and 10/06/2020 WISDOM TOOTH EXTRACTION REVIEW OF SYSTEMS Review [...] nursing note reviewed. Exam conducted with a canine deputy present. Vitals: Estimated body mass index is 24.32 kg/m as calculated from the following: Height as of 23: 5' 5 . Weight as of this encounter: 146 lb 1.9 oz. BP: 110/70 No LMP recorded. ASSESSMENT & PLAN ICD-10-CM 1. Well woman exam with routine gynecological exam Z01.419 Pap Smear HPV DNA probe, amplified Annual Exam: Patient presents today for an annual exam. Patient states she is doing well and has no complaints. Pap was obtained without difficulty. Orders Placed This Encounter Procedures HPV DNA probe, amplified Follow Up: Patient is to return in one year for annual unless needed otherwise. Documented by Mary Botello LPN on behalf of: Justice Milan DO documented in this encounterSullivan County Memorial [id number] Evaluation note* Encounter Date Diagnosis Assessment Notes Treatment Notes Treatment Clinical Notes May, History of hypothyroidism (ICD-1 0 - Z86.39) Notes that she did take thyroid medication prior to her misscarriage. Will recheck labs. May,Menstrual cramps (ICD-10 - N94.6)Discussed will test labs and will call with any further recommendation. Pt verbalizes understanding. May,Irregular menstruation (ICD-10 - N92.6) May,ysfunction of both eustachian tubes (ICD-10 - H69.93)Informed pt that there are no signs of [...] verbalizes understanding and agreement with treatment plan. May,hronic nasal congestion (ICD-10 - R09.81)Take Claratin daily as well as the Astelin spray. [employer] Other Evaluation + Plan note No data available for this section [facility] note[facility] assessment information available [facility] Work Phone: Evaluation note* Diagnosis Well woman exam with routine gynecological exam Routine gynecological examination [facility] Diagnosis Ear fullness, right- Primary Chronic rhinitis Tensor tympani spasm disorder, left [facility]* Diagnosis Capillary angioma- Primary Nevus, non-neoplastic Seborrheic keratosis Melanocytic nevus of skin of both upper extremities Lentigo simplex Other dyschromia Rhytides [facility] Diagnosis Well woman exam with routine gynecological exam Routine gynecological examination Encounter for screening mammogram for malignant neoplasm of breast documented in this encounter [facility] HospitalHistory general Narrative - Reported* Type Description Date Surgical History D&C x4 [employer] Other History of Present illness Narrative* LYN Epstein - 01/31/2025 4:00 PM EDT [...] Examined Right arm Examined Patient wearing nail amharic, Denies dark streaks on toenails Left arm [...] 1 year, skin check [facility] instructions No data available for this section [facility]Progress [facility] No data available for this section [facility] Summary Purpose Family History Relationship Condition Age at Onset Recorded Date/T candi father Diabetes mellitus Unknown HypertensionUnknownNot SpecifiedHyperlipidemiaUnknown Advance Directives Advance Directive Response Recorded Date/ Time Advance Directives No December 07, 2019 5:23pm Chief Complaint and Reason for Visit Chief Complaint UA Additional Source Comments INFORMATION SOURCE (unrecogn ized section and content) DATE CREATED AUTHOR 02/04/2021 [facility] DATE CREATED AUTHOR AUTHOR'S ORGANIZ ATION 06/04/2021 [facility] DATE CREATED AUTHOR AUTHOR'S ORGANIZ ATION 10/31/2022 [facility] DATE CREATED AUTHOR AUTHOR'S ORGANIZ ATION 02/08/2025 [facility] EPIC Patient Care team informatio n (unrecognized section and content) Team Status: Active Member Role Status Dates Arianna Atkins DO Primary Care Provider Active Team Status: Inactive Member Role Status Dates Arianna Atkins DO Primary Care Provider Active Start: September 30, 2023 End: September 30, 2023Keyonna Keane APRN DOOR TENDER-CAttending ProviderActive Start: September 30, 2023 End: September 30, 2023Team MemberRelationshipSpecialtyStart DateEnd Date Thomas Mckeon DO [address] [place] [phone] PCP - [facility]09/25/22Team MemberRelationshipSpecialtyStart DateEnd Date Thomas Mckeon DO [address] [place] [address] PCP [facility]09/25/22Team MemberRelationshipSpecialtyStart DateEnd Date Thomas Mckeon DO [address] [facility] [place] [address] [facility] - [facility]09/25/22Team MemberRelationshipSpecialtyStart DateEnd Date Thomas Mckeon DO [address] [place] [address] PCP - [facility]08/20/24Team MemberRelationshipSpecialtyStart DateEnd Date Thomas Mckeon DO [address] [place] [address] PCP - [facility]08/20/24Team MemberRelationshipSpecialtyStart DateEnd Date Thomas Mckeon, [address] [place] [phone] PCP - [facility]08/20/24Te MemberRelationshipSpecialtyStart DateEnd Date Thomas Mckeon DO [address] [place] [phone] PCP - [facility]08/20/24Te MemberRelationshipSpecialtyStart DateEnd Date Thomas Mckeon, [address] [place] [phone] PCP - [facility]08/20/24Te MemberRelationshipSpecialtyStruidoso downs DateEnd Date Thomas Mckeon, [address] [place] [phone] PCP - [facility]08/20/24 REASON FOR VISIT (unrecogniz ed section and content) ReasonCommentsWell Women VisitReasonCommentsTinnitusThumping in left earReason CommentsSkin Check Goals (unrecognized section and content) Goals may [...] BE BASED ON THE PRIMARY CLINICAL RECORDS. [facility]. provides no warranty or guarantee of the accuracy or completeness of information in this document.
--- NOTE | 2025-02-15 17:45 | MM_ITS ---
Patient Name: JOSE DAVID BRENNER MR#: [id number] : 1985 Exam Date: 02/15/2025 Ordering Doctor: DR MONSTER AGUILAR . RADIOLOGY REPORT PROCEDURE: MM TOMOSYNTHESIS SCREENING BI COMPARISON: MM TOMOSYNTHESIS DIAGNOSTIC BI, 06/16/2019. INDICATIONS: Screening mammogram Calculator Name NCI Breast Cancer Risk Assessment Tool 5 Year Breast Cancer Risk 1.50% Lifetime Breast Cancer Risk 16.20% Personal Breast Cancer No Personal Ovarian Cancer No Treatments None Family Cancers Father with prostate cancer at age 70. LOCATION: [facility] BREAST COMPOSITION: The breasts are heterogeneously dense, which may obscure small masses. FINDINGS: DIAGNOSTIC CATEGORY 1--NEGATIVE. RIGHT BREAST: No significant suspicious finding. LEFT BREAST: No significant suspicious finding. RECOMMENDATIONS: ROUTINE MAMMOGRAM AND CLINICAL EVALUATION IN 12 MONTHS. Dictated by: Leonardo Henry MD on 02/16/2025 at 11:18 Approved by: Leonardo Henry MD on 02/16/2025 at 11:20
== END 2025-02-15 17:18 | disposition home or self-care (01) ==
LOC: MAMMO 17:17
PROVIDERS: PCP Nurse Practitioner Family; Visit Provider Obstetrics & Gynecology
DX: Z12.31 Encounter for screening mammogram for malignant neoplasm of breast (principal); Z80.42 Family history of malignant neoplasm of prostate
CPT/HCPCS: 77063; 77067